=== PATIENT | female | born 1975 | race Caucasian/White ===

== ENCOUNTER 2020-05-09 07:28 | Outpatient (REF) | payer BC, SELFPAY ==
--- NOTE | 2020-05-09 07:33 | MM_ITS ---
EXAMINATION: MM SCREENING DIGITAL BREAST TOMOSYNTHESIS, BILATERAL CLINICAL INFORMATION: Screening. Asymptomatic. The lifetime risk of breast cancer based on the Tyrer-Cuzick Model is 24%. COMPARISON: Mammography: 05/04/2019, 04/28/2018, 04/26/2017, 04/19/2016 TECHNIQUE: Digital breast tomosynthesis is performed in both the craniocaudal and mediolateral oblique views along with computer-aided detection (CAD). Synthesized 2D images are generated from the tomosynthesis. FINDINGS: There are scattered areas of fibroglandular density (ACR BI-RADS breast composition Category b). There are no significant masses, abnormal calcifications, or other abnormalities. Parenchymal pattern is similar to prior studies. No significant changes. MM/MM tomosynthesis screening BI IMPRESSION: No mammographic evidence of malignancy. ASSESSMENT: BI-RADS 1: Negative RECOMMENDATION: 1. Routine annual mammography screening. 2. The lifetime risk of breast cancer based on the Tyrer-Cuzick Model is 24%. Additional annual adjunct screening with breast MRI may be of benefit in women with a risk score of 20% or greater. This patient's information was entered into a reminder system with a target due date for their next mammogram.
== END 2020-05-09 07:29 | disposition home or self-care (01) ==
LOC: HO.MAMMO 07:28
PROVIDERS: PCP Internal Medicine; Visit Provider Internal Medicine
DX: Z12.31 Encounter for screening mammogram for malignant neoplasm of breast (principal)
CPT/HCPCS: 77063; 77067

== ENCOUNTER 2021-05-21 07:07 | Outpatient (REF) | payer BC, SELFPAY ==
[2021-05-21 11:35] LABS: MANUAL DIFF FLAG NO
[2021-05-21 11:40] LABS: Basophils Absolute Auto 0.1 X10*3/uL (0.0-0.2); Basophils Percent Auto 0.4 % (0-2); Eosinophils Absolute Auto 0.1 X10*3/uL (0.0-0.4); Eosinophils Percent Auto 1.2 % (0-4); Hematocrit 42.9 % (37.0-47.0); Hemoglobin 13.7 g/dl (12.0-16.0); Imm Gran Abs Auto 0.04 X10*3/uL (0.00-0.03); Imm Gran Pct Auto 0.4 % (0.0-0.4); Lymphocytes Absolute Auto 2.1 X10*3/uL (1.2-4.9); Mean Corpuscular HGB Conc 31.9 g/dl (31.0-35.0); Mean Corpuscular Hemoglobin 30.7 pg (27.0-33.0); Mean Corpuscular Volume 96.2 fL (80.0-98.0); Mean Platelet Volume 12.3 fL (9.4-12.3); Monocytes Absolute Auto 0.6 X10*3/uL (0.1-1.2); Monocytes Percent Auto 5.5 % (2-11); Neutrophils Absolute Auto 8.5 x10*3/uL (2.0-8.3); Neutrophils Percent Auto 74.5 % (45-73); Platelet Count 339 X10*3/uL (160-400); Red Blood Count 4.46 X10*6/uL (4.20-5.50); Red Cell Distribution Width 12.1 % (11.0-16.0); White Blood Count 11.4 X10*3/uL (4.8-10.8)
[2021-05-21 11:53] LABS: Alanine Aminotransferase 28 U/L (0-31); Albumin Level 4.3 g/dL (3.5-5.0); Alkaline Phosphatase 114 U/L (39-117); Anion Gap 11 (12-20); Aspartate Amino Transferase 19 U/L (5-31); Bilirubin Total 0.5 mg/dL (0.0-1.0); Blood Urea Nitrogen 12 mg/dL (9-16); Calcium 9.9 mg/dL (8.4-10.2); Carbon Dioxide 27 mmol/L (22-29); Chloride 107 mmol/L (96-108); Cholesterol 166 mg/dL; Estimated Glomerular Filt Rate > 60; Glucose Fasting 92 mg/dL (60-99); HDL Cholesterol 43 mg/dL; LDL Cholesterol Calculated 101 mg/dl; Potassium 4.9 mmol/L (3.3-5.1); Sodium 140 mmol/L (135-145); Total Protein 7.3 g/dL (6.5-8.0); Triglycerides 110 mg/dL
[2021-05-21 12:14] LABS: TSH reflex Free T4 1.64 uIU/mL (0.32-4.0)
== END 2021-05-21 07:08 | disposition home or self-care (01) ==
LOC: HO.HMGCLDS 07:07
PROVIDERS: PCP Internal Medicine; Visit Provider Internal Medicine
DX: Z00.01 Encounter for general adult medical examination with abnormal findings (principal); R10.13 Epigastric pain; E66.09 Other obesity due to excess calories; N30.10 Interstitial cystitis (chronic) without hematuria; Z91.09 Other allergy status, other than to drugs and biological substances
CPT/HCPCS: 36415; 80053; 80061; 84443; 85025

== ENCOUNTER 2021-06-22 12:34 | Outpatient (REF) | payer BC, SELFPAY ==
--- NOTE | ~2021-06-22 | MM_ITS ---
EXAMINATION: MM SCREENING DIGITAL BREAST TOMOSYNTHESIS, BILATERAL CLINICAL INFORMATION: Screening. Asymptomatic. The lifetime risk of breast cancer based on the Tyrer-Cuzick Model is 21%. COMPARISON: Mammography: 05/09/2020, 05/04/2019, 04/28/2018 TECHNIQUE: Digital breast tomosynthesis is performed in both the craniocaudal and mediolateral oblique views along with computer-aided detection (CAD). Synthesized 2D images are generated from the tomosynthesis. FINDINGS: There are scattered areas of fibroglandular density (ACR BI-RADS breast composition Category b). There are no significant masses, abnormal calcifications, or other abnormalities. Parenchymal pattern is similar to prior studies. There is no developing density or architectural abnormality. The axilla and skin contours are unremarkable. No significant changes. MM/MM tomosynthesis screening BI IMPRESSION: No mammographic evidence of malignancy. ASSESSMENT: BI-RADS 1: Negative RECOMMENDATION: 1. Routine annual mammography screening. 2. The lifetime risk of breast cancer based on the Tyrer-Cuzick Model is 21%. Additional annual adjunct screening with breast MRI may be of benefit in women with a risk score of 20% or greater. This patient's information was entered into a reminder system with a target due date for their next mammogram.
== END 2021-06-22 12:35 | disposition home or self-care (01) ==
LOC: HO.MAMMO 12:34
PROVIDERS: PCP Internal Medicine; Visit Provider Internal Medicine
DX: Z12.31 Encounter for screening mammogram for malignant neoplasm of breast (principal)
CPT/HCPCS: 77063; 77067

== ENCOUNTER 2021-08-13 14:13 | Outpatient (REF) | payer BC, SELFPAY ==
[2021-08-13 16:09] LABS: C Reactive Protein 1.69 mg/dL (< or = 0.50)
[2021-08-17 12:21] LABS: Transglutaminase Ab IgG <1.0 U/mL; Transglutaminase IgA <1.0 U/mL
== END 2021-08-13 14:14 | disposition home or self-care (01) ==
LOC: HO.LAB 14:13
PROVIDERS: PCP Internal Medicine; Referring Provider Internal Medicine; Visit Provider Nurse Practitioner
DX: R19.7 Diarrhea, unspecified (principal)
CPT/HCPCS: 36415; 86003; 86140; 86364

== ENCOUNTER 2021-08-17 16:17 | Outpatient (REF) | payer BC, SELFPAY ==
[2021-08-25 22:46] LABS: Pancreatic Elastase-1 >500 mcg/g
== END 2021-08-17 16:18 | disposition home or self-care (01) ==
LOC: HO.LNP 16:17
PROVIDERS: Visit Provider Nurse Practitioner
DX: R19.7 Diarrhea, unspecified (principal)
CPT/HCPCS: 82656

== ENCOUNTER 2021-08-20 14:44 | Outpatient (REF) | payer BC, SELFPAY ==
[2021-08-20 16:57] LABS: TSH reflex Free T4 0.89 uIU/mL (0.32-4.0)
== END 2021-08-20 14:45 | disposition home or self-care (01) ==
LOC: HO.LAB 14:44
PROVIDERS: PCP Internal Medicine; Referring Provider Internal Medicine; Visit Provider Internal Medicine Cardiovascular Disease
DX: R00.2 Palpitations (principal); R94.31 Abnormal electrocardiogram [ECG] [EKG]; I10 Essential (primary) hypertension; G47.30 Sleep apnea, unspecified
CPT/HCPCS: 36415; 84443

== ENCOUNTER → 2021-09-06 20:33 | Outpatient (REF) | payer BC, SELFPAY | LOC: HO.SL 20:33 | PROVIDERS: Visit Provider Internal Medicine Cardiovascular Disease | DX: G47.30 Sleep apnea, unspecified (principal) | CPT/HCPCS: 95810 ==

== ENCOUNTER 2021-09-18 09:02 | Outpatient (REF) | payer BC, SELFPAY | END 2021-09-18 09:03 | disposition home or self-care (01) | LOC: HO.LAB 09:02 | PROVIDERS: PCP Internal Medicine; Referring Provider Internal Medicine; Visit Provider Nurse Practitioner | DX: Z13.89 Encounter for screening for other disorder (principal) ==

== ENCOUNTER 2021-09-22 09:56 | Outpatient (REF) | payer BC, SELFPAY ==
[2021-09-29 18:52] LABS: Calprotectin, Fecal 31 mcg/g
== END 2021-09-22 09:57 | disposition home or self-care (01) ==
LOC: HO.LNP 09:56
PROVIDERS: Visit Provider Nurse Practitioner
DX: R19.7 Diarrhea, unspecified (principal); R79.82 Elevated C-reactive protein (CRP)
CPT/HCPCS: 83993

== ENCOUNTER → 2021-10-16 14:48 | Outpatient (BNVA) | payer BC, SELFPAY | PROVIDERS: PCP Internal Medicine; Referring Provider Internal Medicine; Visit Provider Nurse Practitioner | DX: R19.7 Diarrhea, unspecified (principal) ==

== ENCOUNTER 2021-11-19 08:00 | Outpatient (REF) | payer BC, SELFPAY ==
[2021-11-19 12:23] LABS: Alanine Aminotransferase 11 U/L (0-31); Albumin Level 4.2 g/dL (3.5-5.0); Alkaline Phosphatase 90 U/L (39-117); Anion Gap 12 (12-20); Aspartate Amino Transferase 13 U/L (5-31); Bilirubin Total 0.9 mg/dL (0.0-1.0); Blood Urea Nitrogen 10 mg/dL (9-16); Calcium 9.2 mg/dL (8.4-10.2); Carbon Dioxide 23 mmol/L (22-29); Chloride 109 mmol/L (96-108); Estimated Glomerular Filt Rate > 60; Glucose Random 95 mg/dL (60-115); Potassium 4.3 mmol/L (3.3-5.1); Sodium 140 mmol/L (135-145); Total Protein 7.2 g/dL (6.5-8.0)
== END 2021-11-19 08:01 | disposition home or self-care (01) ==
LOC: HO.HMGCLDS 08:00
PROVIDERS: PCP Internal Medicine; Visit Provider Internal Medicine
DX: I10 Essential (primary) hypertension (principal); R10.13 Epigastric pain; R94.31 Abnormal electrocardiogram [ECG] [EKG]
CPT/HCPCS: 36415; 80053

== ENCOUNTER → 2021-11-29 13:55 | Outpatient (REF) | payer BC, SELFPAY ==
--- NOTE | 2021-11-29 14:01 | HM_ITS ---
* Total monitoring time 3 days and 18 hours. * Underlying rhythm is sinus. Average rate 71/Min. Range 54 to 120/Min. * Rare supraventricular ectopy with minimal burden. * 4 supraventricular episodes; longest 15 beats. * No patient events. MTDD
--- NOTE | 2021-11-29 14:01 | CA_ITS ---
Transthoracic Echocardiogram Patient (Last, First, Middle): Aparna Zimmerman S Gender: Female Date of : 1975 Age: 46 Procedure Date: 11/29/2021 Procedure Type: Transthoracic Echocardiogram Location: OP Height: 170.18 cm Weight: 95.26 kg BSA: 2.06 m2 Heart Rate: bpm BP: 131 / 70 mmHg Story Editor: RITU Referring MD: Addi Sandoval MD Symptoms: R00.2 - Palpitations Study Quality: Adequate Conclusions: - Normal left ventricular size, thickness, systolic function, and wall motion. The visually estimated ejection fraction is between 60-65%. - Normal right ventricular cavity size and systolic function. - There is mild dilatation of the ascending aorta measuring 3.30 cm. Findings Left Ventricle Normal left ventricular size, thickness, systolic function, and wall motion. The visually estimated ejection fraction is between 60-65%. Diastolic function is normal for age. Right Ventricle Normal right ventricular cavity size and systolic function. Atria Both atria are normal in size. Aortic Valve Normal aortic valve structure and function. There is no aortic valve stenosis. There is no aortic valve regurgitation. Mitral Valve Normal mitral valve structure and function. There is no mitral valve regurgitation. There is no mitral valve stenosis. Pulmonic Valve Normal pulmonic valve structure and function. There is trace pulmonic valve regurgitation. Tricuspid Valve Normal tricuspid valve structure and function. There is no tricuspid valve regurgitation. Normal right atrial pressure. There is no evidence of pulmonary hypertension. Great Vessels There is mild dilatation of the ascending aorta measuring 3.30 cm. The visualized portions of the pulmonary artery and branches are normal. Venous The inferior vena cava is normal in size and collapses greater than 50% with inspiration. Pericardium/Pleural There is no evidence of pericardial effusion. Prior Study Comparison No prior study available for comparison. Measurements 2D Linear Measurements IVSd: 1.01 0.6-0.9/0.6-1.0 cm LVIDd: 4.68 3.9-5.3/4.2-5.9 cm LVIDd Index: 2.27 2.4-3.2/2.2-3.1 cm/m2 LVIDs: 3.32 2.0-3.6 cm LVPWd: 0.85 0.7-1.1 cm LA Diam: 3.10 2.7-3.8/3.0-4.0 cm LAIDs Index: 1.50 1.5-2.3 cm/m2 LV Mass: 184.58 67-162/88-224 g LV Mass Index: 89.60 43-95/49-115 g/m2 LVOT Diam: 2.00 3.0+(-)1.3 cm 2D Systolic Function EF 4C: 63.00 >55% EF 2C: 66.90 >55% EF BiP: 63.60 >55% Mitral Valve MV Pk E: 0.61 MV PK A: 0.49 MV Decel Time: 296.00 E/A: 1.20 E'Lateral: 9.68 E'Medial: 7.29 E/E' Med: 8.30 E/E' Lat: 6.30 PHT: 87.00 MVA PHT: 2.53 Decel [place]: 2.06 LVOT LVOT Diam: 2.00 LVOT Area: 3.14 Diastolic Function MV Pk E: 0.61 MV Pk A: 0.49 E/A: 1.20 E'Medial: 7.29 E/E' Med: 8.30 E' Laterial: 9.68 E/E' Lat: 6.30 Right Ventricle TAPSE (mm): 22.30 TVS' Blake: 10.10 Tricuspid Valve TR Pk Blake: 2.11 TR Pk Grad: 18.00 RA Press: 3.00 RVSP: 21.00 Great Vessels Aorta Sinus of Valsalva: 3.24 2.0-3.[address] [place]: 3.02 1.7-3.4 cm Ao Asc: 3.30 2.1-3.4 cm Updated in Other Vendor System with Status of Final Addi Sandoval MD electronically signed on 12/03/2021 8:48:51 AM with status of Final
== END ==
LOC: HO.CARD 13:55
PROVIDERS: PCP Internal Medicine; Visit Provider Internal Medicine Cardiovascular Disease
DX: R00.2 Palpitations (principal)
CPT/HCPCS: 93242; 93306

== ENCOUNTER → 2021-12-03 14:53 | Outpatient (BNVA) | payer BC, SELFPAY | PROVIDERS: PCP Internal Medicine; Referring Provider Internal Medicine; Visit Provider Internal Medicine Cardiovascular Disease | DX: I10 Essential (primary) hypertension (principal); R00.2 Palpitations | CPT/HCPCS: 93005 ==

== ENCOUNTER 2021-12-10 11:02 | Day surgery (SDC) | payer BC, SELFPAY ==
--- NOTE | 2021-12-07 08:45 | HO.ANESPROP2 ---
Documented by User: Syeda Lim NP 12/07/21 08:47 [facility] Active Problems Active Problems: All Active Problems (Updated 09/18/21 @ 09:48 by RIMMA Parson) Elevated C-reactive protein (CRP) (Acute) Sleep disorder breathing (Acute) Diarrhea (Acute) Hypertension, essential (Acute) Abnormal EKG (Acute) Palpitations (Acute) Obesity due to excess calories (Acute) Chronic interstitial cystitis (Acute) Breast screening (Acute) Bladder disorder (Acute) Dyspepsia (Acute) Encounter for general adult medical examination with abnormal findings (Acute) Environmental allergies (Acute) Past Medical History Medical History Environmental allergies Family History Family History Mother HTN (hypertension) Father HTN (hypertension) Other Substance use disorder Surgical History Surgical History History of endoscopy History of hysterectomy Social History Social History Housing: House Alcohol intake: current Alcohol intake frequency: holidays/special occasions only Patient Tobacco Use Status: Never used Tobacco Advance Directives: No Advance Directives Information Provided: Yes Patient : No Current occupational status: employed Cognitive needs: No Hearing needs: No Vision needs: Yes Meds Allergies Allergy/AdvReac Type Severity Reaction Status Date / Time No Known Allergies Allergy Verified 12/03/21 15:03 Home Medications Medication Instructions Recorded Confirmed Last Taken Type calcium carbonate [Calcium 600] PO DAILY 05/16/21 12/04/21 Unknown History famotidine 20 mg tablet (Pepcid) 20 mg PO DAILY PRN Acid Reflux 05/16/21 12/04/21 12/10/21 History fexofenadine 180 mg tablet 180 mg PO DAILY 05/16/21 12/04/21 Unknown History (Cathy Allergy) solifenacin 5 mg tablet 5 mg PO DAILY 05/16/21 12/04/21 Unknown History desogestrel 0.15 mg-ethinyl 1 tab PO DAILY 08/20/21 12/04/21 Unknown History estradiol 0.03 mg tablet (Apri) Exam Exam Date and Time: December 07, 2021 0845 Pertinent Lab Results Pertinent Lab Results: Laboratory Tests 05/21/21 11/19/21 07:15 08:08 WBC 11.4 H Hgb 13.7 Hct 42.9 Plt Count 339 Sodium 140 Potassium 4.3 Chloride 109 H Carbon Dioxide 23 BUN 10 Creatinine 0.92 Narrative Narrative: EKG 11/2021 Sinus rhythm 88 beats per minute, nonspecific ST-T changes in the inferior and anterolateral leads as before.? QT interval 435 milliseconds. ECHO 11/2021 Conclusions: - Normal left ventricular size, thickness, systolic function, and wall motion. The visually estimated ejection fraction is between 60-65%.? - Normal right ventricular cavity size and systolic function.? ? - There is mild dilatation of the ascending aorta measuring 3.30 cm.? ? Assessment and Plan Assessment Anesthesia Assessment: Chart Reviewed Documented by User: Cheyanne Esteban MD 12/10/21 13:03 HPI - Anesthesia Eval Consult details Narrative: 46yo female patient for colonoscopy PMFSH Active Problems Active Problems: All Active Problems (Updated 09/18/21 @ 09:48 by RIMMA Parson) Elevated C-reactive protein (CRP) (Acute) Sleep disorder breathing (Acute) Diarrhea (Acute) Hypertension, essential (Acute) Abnormal EKG (Acute) Palpitations (Acute) Obesity due to excess calories (Acute) Chronic interstitial cystitis (Acute) Breast screening (Acute) Bladder disorder (Acute) Dyspepsia (Acute) Encounter for general adult medical examination with abnormal findings (Acute) Environmental allergies (Acute) Had sleep study. Negative for DILLAN Past Medical History Medical History Environmental allergies Family History Family History Mother HTN (hypertension) Father HTN (hypertension) Other Substance use disorder Family history of problems with anesthesia: No Surgical History Surgical History History of endoscopy History of hysterectomy History of Problems with Anesthesia: No Social History Social History Housing: House Alcohol intake: current Alcohol intake frequency: holidays/special occasions only Patient Tobacco Use Status: Never used Tobacco Advance Directives: No Advance Directives Information Provided: Yes Patient : No Current occupational status: employed Cognitive needs: No Hearing needs: No Vision needs: Yes Meds Allergies Allergy/AdvReac Type Severity Reaction Status Date / Time No Known Allergies Allergy Verified 12/03/21 15:03 Home Medications Medication Instructions Recorded Confirmed Last Taken Type calcium carbonate [Calcium 600] PO DAILY 05/16/21 12/04/21 Unknown History famotidine 20 mg tablet (Pepcid) 20 mg PO DAILY PRN Acid Reflux 05/16/21 12/04/21 12/10/21 History fexofenadine 180 mg tablet 180 mg PO DAILY 05/16/21 12/04/21 Unknown History (Cathy Allergy) solifenacin 5 mg tablet 5 mg PO DAILY 05/16/21 12/04/21 Unknown History desogestrel 0.15 mg-ethinyl 1 tab PO DAILY 08/20/21 12/04/21 Unknown History estradiol 0.03 mg tablet (Apri) Exam Height,Weight and Vital Signs: Height 5 ft 7 in Weight 95.708 kg Vital Signs Temp Pulse Resp BP Pulse Ox O2 Del Method 12/10/21 11:06 97 F 85 18 122/59 L 98 Room Air Airway Mallampati Class: III (Small mouth opening ) TM Dist: >3cm Neck ROM: Full Loose/Missing/Broken Teeth: No (Per patient. Caps intact) Heart: RRR Lungs: CTAB Assessment and Plan Final Anesthetic Review Family History of Problems with Anesthesia: No History of Problems with Anesthesia: No NPO: Yes ASA Class: II Final Preanesthetic Review: No Changes in Pt Med Stat, Meds/Allgs Chart Reviewed, Consent Obtained/Reviewed and Anes Risks/Benef Reviewed Patient Risk: Intermediate Procedure Risk: Low Assessment/Block/Sedation in SS: Assess/Block/Sedation-SS Anesthetic Plan Anesthetic Plan: MAC: Disposition: Standard PACU
[2021-12-10 06:14] VITALS: BMI 33.0
[2021-12-10 11:06] VITALS: BP 122/59; PULSE 85; RESP 18; TEMP 36.1; O2SAT 98
[2021-12-10] MEDS: Lactated Ringers 1,000 ML 100 ML IVCONT (11:22)
--- NOTE | 2021-12-10 11:41 | MHC.SHP ---
Pre-Procedural Eval Section A Date of Service: 12/10/21 The patient is an INPATIENT: No Section B Chief Complaint: diarrhea Relevant Family History (Specify if Yes): No Relevant Social History: None Present Medications: see Short Stay Collaborative assessment Medical History: Significant History (Hypertension, diarrhea, Obesity) History of Previous Operations: Relevant previous surgery/procedure and date(s) (History of endoscopy History of hysterectomy) Allergies: Allergies Allergy/AdvReac Type Severity Reaction Status Date / Time No Known Allergies Allergy Verified 12/03/21 15:03 Review of Systems Sugical H&P ROS: Negative: Constitution, Cardiovascular and Respiratory and Yes, Specify: Gastrointestinal (diarrhea) Exam Surgical H&P Exam: Normal: Heart, Normal: Lungs, Normal: Extremities and Normal: Abdomen Plan Diagnosis/Plan: Unchanged I have reviewed the history and physical and performed a pertinent physical examination on my patient. No changes have occurred unless specified.
--- NOTE | 2021-12-10 12:31 | PM.OP ---
Brief Operative Note Date of Service: 12/10/21 Pre-op diagnosis: Colon cancer screen, diarrhea alternating with constipation Post-op diagnosis: other (Hemorrhoids, diverticulosis) Procedure: COLONOSCOPY TILL CECUM WITH BIOPSIES Consent: Indications for the procedure and potential complications of bleeding, perforation, reaction to medications and missed diagnosis were discussed with the patient and informed consent was obtained. Instrument: Olympus PCF H 190 L variable stiffness pediatric colonoscope Monitoring: Vital signs and clinical assessment, intermittent blood pressure monitoring, continuous EKG monitoring, Pulse oximetry and Carbon Dioxide monitoring were done throughout the procedure. Colon withdrawl time was 12 minutes. Procedure: The patient was placed in the left lateral decubitis position and pre-procedure medications were administered. After a digital rectal examination of the ano-rectum, the video colonoscope was inserted into the rectum and advanced through the colon to the cecum. The colonoscope was slowly withdrawn in a retrograde panoramic fashion and the colon mucosa was carefully examined including a retroflexed view of the rectum. Findings and interventions are described below. Procedure Difficulty: Without difficulty Findings: Terminal Ileum: Attempts to intubate the TI were unsuccessful Cecum: Normal Ascending Colon: Normal Transverse Colon: Normal Descending Colon: Moderate diverticulosis Sigmoid Colon: Severe diverticulosis Rectum: Normal Ano-rectum: Moderate internal hemorrhoids Colon preparation: Excellent Impression and Post Procedure Diagnosis: Colonoscopy Findings: No polyps were detected. Random biopsies were obtained from the right and left colon to check for microscopic colitis Moderate to severe diverticulosis seen in the left colon Moderate hemorrhoids on retroflexed exam. Plan: Await pathology results Patient has an appointment on 12/25/21 in the GI Clinic with Radha To NP. Repeat Colonoscopy interval based on path results - in 10 years if random biopsies are normal. Above findings were reviewed with the patient and diverticulosis handout was given in the discharge area Surgeon: John Calvin MD Anesthesia: MAC (Dr Cadena) Was an Trim Master Operator used for this Procedure?: Yes Trim Master Operator: Mary Diaz Estimated blood loss (mL): 0 Pathology: other (A: right Colon biopsies r/o microscopic colitis B: left colon biopsies r/o microscopic colitis) Condition: stable Disposition: PACU
[2021-12-10 13:02] VITALS: BP 116/56; PULSE 81; RESP 16; TEMP 37.3; O2SAT 95
[2021-12-10 13:17] VITALS: BP 111/55; PULSE 84; RESP 16; TEMP 36.3; O2SAT 99
--- NOTE | 2021-12-12 16:49 | W.PM.OPN ---
Operative Note Operative Note Date of Service: 12/10/21 Narrative: Pre-op diagnosis: Colon cancer screen, diarrhea alternating with constipation Post-op diagnosis:?other (Hemorrhoids, diverticulosis) Procedure: COLONOSCOPY TILL CECUM WITH BIOPSIES Consent: Indications for the procedure and potential complications of bleeding, perforation, reaction to medications and missed diagnosis were discussed with the patient and informed consent was obtained. Instrument: Olympus PCF H 190 L variable stiffness pediatric colonoscope Monitoring: Vital signs and clinical assessment, intermittent blood pressure monitoring, continuous EKG monitoring, Pulse oximetry and Carbon Dioxide monitoring were done throughout the procedure. Colon withdrawl time was 12 minutes. Procedure: The patient was placed in the left lateral decubitis position and pre-procedure medications were administered. After a digital rectal examination of the ano-rectum, the video colonoscope was inserted into the rectum and advanced through the colon to the cecum. The colonoscope was slowly withdrawn in a retrograde panoramic fashion and the colon mucosa was carefully examined including a retroflexed view of the rectum. Findings and interventions are described below. Procedure Difficulty: Without difficulty Findings: Terminal Ileum: Attempts to intubate the TI were unsuccessful Cecum:? Normal Ascending Colon:? Normal Transverse Colon:? Normal Descending Colon:? Moderate diverticulosis Sigmoid Colon:? Severe diverticulosis Rectum:? Normal Ano-rectum:? Moderate internal hemorrhoids Colon preparation: Excellent ? Impression and Post Procedure Diagnosis: Colonoscopy Findings: No polyps were detected. Random biopsies were obtained from the right and left colon to check for microscopic colitis Moderate to severe diverticulosis seen in the left colon Moderate hemorrhoids on retroflexed exam. Plan: Await pathology results Patient has an appointment on 12/25/21 in the GI Clinic with? Radha To NP. Repeat Colonoscopy interval based on path results - in 10 years if random biopsies are normal. Above findings were reviewed with the patient and diverticulosis handout was given in the discharge area Surgeon: John Calvin MD Anesthesia:?MAC (Dr Cadena) Was an Clinical Rehabilitation Specialist used for this Procedure?:?Yes Clinical Rehabilitation Specialist:?Mary Diaz Estimated blood loss (mL):?0 Pathology:?other (A: right Colon biopsies r/o microscopic colitis? B: left colon biopsies r/o microscopic colitis) Condition:?stable Disposition:?PACU
== END 2021-12-10 13:37 | disposition home or self-care (01) ==
PROVIDERS: PCP Internal Medicine; Visit Provider Internal Medicine Gastroenterology
PROC: 0DJD8ZZ Inspection of Lower Intestinal Tract, Via Natural or Artificial Opening Endoscopic (ICD-10-PCS; CPT 45378; principal; 2021-12-10 12:00)
DX: Z12.11 Encounter for screening for malignant neoplasm of colon (principal); R19.7 Diarrhea, unspecified; K59.00 Constipation, unspecified; K57.30 Diverticulosis of large intestine without perforation or abscess without bleeding; K64.8 Other hemorrhoids; I10 Essential (primary) hypertension; R79.82 Elevated C-reactive protein (CRP); Z79.899 Other long term (current) drug therapy
CPT/HCPCS: 45380; 88305

== ENCOUNTER → 2022-06-27 13:54 | Outpatient (BNVA) | payer BC, SELFPAY | PROVIDERS: PCP Internal Medicine; Visit Provider Nurse Practitioner | DX: Z13.89 Encounter for screening for other disorder (principal) ==

== ENCOUNTER 2022-07-18 12:03 | Outpatient (REF) | payer BC, SELFPAY ==
--- NOTE | ~2022-07-18 | MM_ITS ---
EXAMINATION: MM SCREENING DIGITAL BREAST TOMOSYNTHESIS, BILATERAL CLINICAL INFORMATION: Screening. Asymptomatic. The lifetime risk of breast cancer based on the Tyrer-Cuzick Model is 17%. COMPARISON: Mammography: 06/22/2021, 05/09/2020, 05/04/2019 TECHNIQUE: Digital breast tomosynthesis is performed in both the craniocaudal and mediolateral oblique views along with computer-aided detection (CAD). Synthesized 2D images are generated from the tomosynthesis. Additional right MLO view is provided. FINDINGS: There are scattered areas of fibroglandular density (ACR BI-RADS breast composition Category b). There are no significant masses, abnormal calcifications, or other abnormalities. No architectural abnormality or developing density or significant change from prior studies. The axilla and skin contours are unremarkable. No significant changes. MM/MM tomosynthesis screening BI IMPRESSION: No mammographic evidence of malignancy. ASSESSMENT: BI-RADS 1: Negative RECOMMENDATION: Routine annual mammography screening. This patient's information was entered into a reminder system with a target due date for their next mammogram.
== END 2022-07-18 12:04 | disposition home or self-care (01) ==
LOC: HO.MAMMO 12:03
PROVIDERS: PCP Internal Medicine; Visit Provider Internal Medicine
DX: Z12.31 Encounter for screening mammogram for malignant neoplasm of breast (principal)
CPT/HCPCS: 77063; 77067

== ENCOUNTER → 2022-08-01 13:56 | Outpatient (BNVA) | payer BC, SELFPAY | PROVIDERS: PCP Internal Medicine; Referring Provider Internal Medicine; Visit Provider Internal Medicine Cardiovascular Disease | DX: I10 Essential (primary) hypertension (principal); R00.2 Palpitations | CPT/HCPCS: 93005 ==

== ENCOUNTER → 2022-11-06 14:47 | Outpatient (BNVA) | payer BC, SELFPAY | PROVIDERS: PCP Internal Medicine; Referring Provider Internal Medicine; Visit Provider Internal Medicine Cardiovascular Disease ==

== ENCOUNTER 2023-01-02 11:42 | Outpatient (AMB) | payer BC, SELFPAY ==
--- NOTE | 2023-01-02 11:44 | A.OFFVIS_ITS ---
Intake Vital Signs 01/02/23 12:24 Height 5 ft 7 in Weight 225 lb 4.999 oz BMI 35.3 BP 102/60 Blood Pressure Location Lt brachial Position Sitting Pulse 65 Intake Visit Reasons: 6 month FU Intake Note: Aparna presents in office as a est.patient for a 6month f/u IBS PT CC: pt reports having no concerns pt denies any GI Issues Junior Underwriter Required: No Accompanied by: Self / Same As Patient Allergies No Known Allergies Allergy (Verified 01/02/23 12:25) HPI 6 month FU HPI Details Assessment & Plan (1) Diarrhea: ?Code(s): R19.7 - Diarrhea, unspecified ?Plan: She thinks she she has devised a dosing schedule for her carafate, 2 pills at night....but notes this does no work as well in the summer months. Then she will have diarrhea despite taking the medicine. I will give her up to 4 a day to play with as the summer approaches. ROV 6 mos. ? ? ? Medications: Changed From sucralfate 2 grams (2 x 1 gra m) PO DAILY 60 tab s 6RF R19.7 - Diarrhea, unspecified ? To sucralfate 4 grams (4 x 1 gra m) PO DAILY 120 ta bs 6RF R19.7 - Diarrhea, unspecified ? TODAY'S VISIT She has had the best summer I have ever had in terms of her diarrhea control. She has not needed to increase her carafate, and is holding well at 2 pills. She has extra set aside in case she needs, but would rather have the prescription amount stay at 2 pills a day. She is waking for 30 minutes in the am and she feels this may also be helping with her GI issues. ROV 6 mos. PFSH Medical History Environmental allergies Surgical History History of endoscopy History of hysterectomy Hx of colonoscopy Family History Mother HTN (hypertension) Father HTN (hypertension) Other Substance use disorder Social History Housing: House Alcohol intake: current Alcohol intake frequency: holidays/special occasions only Patient Tobacco Use Status: Never used Tobacco e-Cigarette/Vaping Use: Never Used Current occupational status: employed Cognitive needs: No Hearing needs: No Vision needs: Yes Review of Systems Const Denies fatigue, Denies fever(s), Denies night sweats, Denies poor appetite and Denies weight loss Eyes Details: glasses Reports requires corrective lenses ENT Reports Normal hearing present, Denies dental pain, Denies dysphagia, Denies hearing loss, Denies mouth pain, Denies odynophagia, Denies throat swelling, Denies tongue swelling and Reports other (Dentition adequate) Card Reports no additional complaints Resp Reports no additional complaints GI Denies abdominal pain, Denies melena, Denies bloating, Denies hematochezia, Denies constipation, Denies GI cramping, Denies dysphagia, Denies excessive flatus, Denies early satiety, Denies heartburn, Reports diarrhea, Denies nausea, Denies odynophagia, Denies vomiting and Denies hematemesis Skin/Breast Denies pruritus, Denies lesions, Denies rash and Denies jaundice Neuro Reports Normal hearing present and Denies Abnormal speech present Endo Denies fatigue Aller/Immun Denies throat swelling and Denies tongue swelling Physical Exam Vital Signs: Last Vital Signs Pulse 65 01/02/23 12:24 BP 102/60 01/02/23 12:24 BMI result Body Mass Index 35.3 Const General: cooperative, no acute distress, well developed and well groomed Nutritional Appearance: well nourished and obese Orientation/consciousness: oriented to person, oriented to place and oriented to time Limitations: No language barrier HEENT Head: Yes normocephalic and Yes atraumatic Eyes General: appearance normal, both eyes and all related structures Pupils: Equal, round and reactive pupils present Neck Neck: Yes normal visual inspection and Yes no lymphadenopathy Thyroid: Thyroid normal Resp Effort & Inspection: normal respiratory effort and able to speak in complete sentences Auscultation: clear to auscultation bilaterally Cardio Rate: regular rate Rhythm: regular rhythm Heart sounds: Normal, physiologic split S2 sound present Peripheral pulses: radial pulses present and posterior tibial pulses present GI Inspection: No distended, No Abdominal panniculus present and Yes obesity Palpation (GI): Soft to palpation, nontender, no guarding, not rigid and No hepatosplenomegaly present Percussion: Yes normal to percussion Auscultation: normal bowel sounds Rectal Exam - Female: deferred Skin General skin exam: no rashes or lesions noted, turgor normal, skin not dry, no jaundice, No spider nevi and no striae Rashes: no rashes Nails: normal Neuro General: oriented to person, oriented to place and oriented to time Cranial nerves: Yes Equal, round and reactive pupils present and Yes Normal hearing present Speech: No Abnormal speech present Extrem General: Yes normal to inspection, No clubbing, No cyanosis and No edema Psych Appearance: grossly normal and well kempt Mental Status: mental status grossly normal Speech and movement: Normal speech and movement present Affect: normal affect Attitude: cooperative Thought process: Normal thought process present and not confabulating Thought content: Normal thought content present Insight: Fair insight present (Psych) Judgement: Fair judgement present (Psych) Assessment & Plan Assessment & Plan (1) Diarrhea: Code(s): R19.7 - Diarrhea, unspecified Plan: She has had the best summer I have ever had in terms of her diarrhea control. She has not needed to increase her carafate, and is holding well at 2 pills. She has extra set aside in case she needs, but would rather have the prescription amount stay at 2 pills a day. She is waking for 30 minutes in the am and she feels this may also be helping with her GI issues. ROV 6 mos. Medications: Changed From sucralfate 4 grams (4 x 1 gram) PO DAILY 120 tabs 6RF R19.7 - Diarrhea, unspecified To sucralfate 2 grams (2 x 1 gram) PO DAILY 120 tabs 6RF R19.7 - Diarrhea, unspecified Coding Level of Care Code Est Pt Level 3 (63444) Diagnoses Diarrhea R19.7
[2023-01-02 12:24] VITALS: BP 102/60; PULSE 65; BMI 35.3
== END 2023-01-02 12:34 | disposition home or self-care (01) ==
PROVIDERS: PCP Internal Medicine; Visit Provider Nurse Practitioner
DX: R19.7 Diarrhea, unspecified (principal)
CPT/HCPCS: 99213

== ENCOUNTER → 2023-01-02 11:42 | Outpatient (BNVA) | payer BC, SELFPAY | PROVIDERS: PCP Internal Medicine; Visit Provider Nurse Practitioner ==

== ENCOUNTER 2023-05-12 13:26 | Outpatient (AMB) | payer BC, SELFPAY ==
--- NOTE | 2023-05-12 13:58 | A.OFFVIS_ITS ---
Intake Vital Signs 05/12/23 14:00 Height 5 ft 7 in Weight 217 lb 6.012 oz BMI 34.0 BP 112/58 L Blood Pressure Location Lt brachial Position Sitting Pulse 68 Pulse Source Pulse Oximeter Intake Visit Reasons: 6 month follow-up Intake Note: 6 mnth f/up pt its fine but when shes fullu asleep she wakes up with her heart pounding. 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 She has been experiencing almost daily palpitations at nighttime since May 2021. She said she wakes up from sleep with palpitations. Occasionally also feels short of breath and at times just startles and wakes up. Denying any snoring but has daytime sleepiness and fatigue. No headaches or nighttime sweating. She is denying chest pain or significant shortness of breath. She also was diagnosed with hypertension and was started on atenolol and her blood pressure control appears good. No history of any thyroid issues. Echocardiography has shown normal biventricular function. There is very mild dilation of ascending aorta 3.3 cm. She has known history of hypertension and started on atenolol previously with good control of blood pressure. Was referred for sleep study which was normal. She had Holter monitor which showed supraventricular ectopy but no long runs of arrhythmia. She was advised to increase atenolol to 25 mg twice a day. She returns and has been feeling the same. She is saying that she has gained more weight and feels that her symptoms are more consistent and she has daytime sleepiness and fatigue also. 05/12/2023: She returns for follow-up. She has lost 8 lb. She continues to get some nighttime palpitations and startled feeling. We discussed about referral to Sleep Medicine before but she wishes to hold off on that again. [facility] Medical History Environmental allergies Surgical History Hx of colonoscopy History of endoscopy History of hysterectomy Family History Mother HTN (hypertension) Father HTN (hypertension) Other Substance use disorder Social History Housing: House Alcohol intake: current Alcohol intake frequency: holidays/special occasions only Patient Tobacco Use Status: Never used Tobacco e-Cigarette/Vaping Use: Never Used Current occupational status: employed Cognitive needs: No Hearing needs: No Vision needs: Yes Review of Systems Const Reports chills, Reports fatigue, Reports fever(s), Reports frequent falls, Reports weakness, Reports weight gain and Reports weight loss ENT Reports dizziness Card Reports chest pain, Reports leg edema, Reports lightheadedness, Reports palpitations, Reports dyspnea and Reports dyspnea on exertion Resp Reports cough, Reports dyspnea and Reports dyspnea on exertion GI Reports hematochezia Musc Reports abnormal gait, Reports muscle weakness, Reports numbness, Reports radiating pain into limb and Reports tingling Neuro Reports abnormal gait, Reports dizziness, Reports frequent falls, Reports numbness, Reports tingling and Reports weakness Endo Reports fatigue and Reports palpitations Physical Exam Vital Signs: Last Vital Signs Pulse 68 05/12/23 14:00 BP 112/58 L 05/12/23 14:00 BMI result Body Mass Index 34.0 GENERAL APPEARANCE: in no acute distress, pleasant. NECK: no carotid bruit, no jugular venous distention. SKIN: no suspicious lesions, warm and dry. HEART: no murmurs, regular rate and rhythm. LUNGS: clear to auscultation bilaterally. ABDOMEN: soft, nontender. EXTREMITIES: no edema. PERIPHERAL PULSES: equal. NEUROLOGIC: No gross deficits, AAO X 3 Assessment & Plan Assessment & Plan (1) Hypertension, essential: Code(s): I10 - Essential (primary) hypertension (2) Palpitations: Code(s): R00.2 - Palpitations Plan Pleasant for 8 female who is here for follow-up. She has background of hypertension and is currently taking atenolol 25 mg twice a day. Blood pressure control is good. She also had palpitations and we used beta-shalom for the same reason. She continues to get some palpitations at night but saying that she is not as concerned about them as she was before. She will continue same medications and try to exercise and lose some weight. If she continues to get the nighttime palpitations then would get assessment for Sleep Medicine for sleep apnea. Thank you for allowing me to participate in the care of your patient. Please feel free to contact me if you have any questions. Coding Level of Care Code Est Pt Level 4 (69952) Diagnoses Hypertension, essential I10 Palpitations R00.2
[2023-05-12 14:00] VITALS: BP 112/58; PULSE 68; BMI 34.0
== END 2023-05-12 14:34 | disposition home or self-care (01) ==
PROVIDERS: PCP Internal Medicine; Visit Provider Internal Medicine Cardiovascular Disease
DX: I10 Essential (primary) hypertension (principal); R00.2 Palpitations
CPT/HCPCS: 99214

== ENCOUNTER → 2023-05-12 13:26 | Outpatient (BNVA) | payer BC, SELFPAY | PROVIDERS: PCP Internal Medicine; Visit Provider Internal Medicine Cardiovascular Disease ==

== ENCOUNTER 2023-07-08 11:41 | Outpatient (AMB) | payer BC, SELFPAY ==
--- NOTE | 2023-07-08 11:43 | A.OFFVIS_ITS ---
Intake Vital Signs 07/08/23 11:44 Height 5 ft 7 in Weight 220 lb 7.396 oz BMI 34.5 BP 112/60 Blood Pressure Location Lt brachial Position Sitting Pulse 60 Intake Visit Reasons: 6 month fu Intake Note: Aparna presents in office today in 6 months follow up of IBS. CC: Patient states she is doing better and states her IBS is manageable now. Process Manufacturing Engineer Required: No Accompanied by: Self / Same As Patient Allergies No Known Allergies Allergy (Verified 07/08/23 11:47) HPI 6 month fu HPI Details Assessment & Plan (1) Diarrhea: Code(s): R19.7 - Diarrhea, unspecified Plan: She has had the best summer I have ever had in terms of her diarrhea control. She has not needed to increase her carafate, and is holding well at 2 pills. She has extra set aside in case she needs, but would rather have the prescription amount stay at 2 pills a day. She is waking for 30 minutes in the am and she feels this may also be helping with her GI issues. ROV 6 mos. Medications: Changed From sucralfate 4 grams (4 x 1 gra m) PO DAILY 120 ta bs 6RF R19.7 - Diarrhea, unspecified To sucralfate 2 grams (2 x 1 gra m) PO DAILY 120 ta bs 6RF R19.7 - Diarrhea, unspecified TODAY'S VISIT She continues to do very well and feels that no changes in her 2 sucralfate a day is needed. She says it is not perfect, but I feel better that I ever did. She remains satisfied with her GI regimen. ROV [facility] mos[facility] Medical History Environmental allergies Surgical History Hx of colonoscopy History of endoscopy History of hysterectomy Family History Mother HTN (hypertension) Father HTN (hypertension) Other Substance use disorder Social History Housing: House Alcohol intake: current Alcohol intake frequency: holidays/special occasions only Patient Tobacco Use Status: Never used Tobacco e-Cigarette/Vaping Use: Never Used Current occupational status: employed Cognitive needs: No Hearing needs: No Vision needs: Yes Review of Systems Const Denies fatigue, Denies fever(s), Denies night sweats, Denies poor appetite and Denies weight loss Eyes Details: glasses Reports requires corrective lenses ENT Reports Normal hearing present, Denies dental pain, Denies dysphagia, Denies hearing loss, Denies mouth pain, Denies odynophagia, Denies throat swelling, Denies tongue swelling and Reports other (Dentition adequate) Card Reports no additional complaints Resp Reports no additional complaints GI Details: Denies abdominal pain, Denies melena, Denies bloating, Denies hematochezia, Denies constipation, Denies GI cramping, Denies dysphagia, Denies excessive flatus, Denies early satiety, Denies heartburn, Reports diarrhea, Denies nausea, Denies odynophagia, Denies vomiting and Denies hematemesis Skin/Breast Denies pruritus, Denies lesions, Denies rash and Denies jaundice Neuro Reports Normal hearing present and Denies Abnormal speech present Endo Denies fatigue Aller/Immun Denies throat swelling and Denies tongue swelling Physical Exam Vital Signs: Last Vital Signs Pulse 60 07/08/23 11:44 BP 112/60 07/08/23 11:44 BMI result Body Mass Index 34.5 Const General: cooperative, no acute distress, well developed and well groomed Nutritional Appearance: well nourished and obese Orientation/consciousness: oriented to person, oriented to place and oriented to time Limitations: No language barrier HEENT Head: Yes normocephalic and Yes atraumatic Eyes General: appearance normal, both eyes and all related structures Pupils: Equal, round and reactive pupils present Neck Neck: Yes normal visual inspection and Yes no lymphadenopathy Thyroid: Thyroid normal Resp Effort & Inspection: normal respiratory effort and able to speak in complete sentences Auscultation: clear to auscultation bilaterally Cardio Rate: regular rate Rhythm: regular rhythm Heart sounds: Normal, physiologic split S2 sound present Peripheral pulses: radial pulses present and posterior tibial pulses present GI Inspection: No distended, Yes Abdominal panniculus present and Yes obesity Palpation (GI): Soft to palpation, nontender, no guarding, not rigid and No hepatosplenomegaly present Percussion: Yes normal to percussion Auscultation: normal bowel sounds Rectal Exam - Female: deferred Skin General skin exam: no rashes or lesions noted, turgor normal, skin not dry, no jaundice, No spider nevi and no striae Rashes: no rashes Nails: normal Neuro General: oriented to person, oriented to place and oriented to time Cranial nerves: Yes Equal, round and reactive pupils present and Yes Normal hearing present Speech: No Abnormal speech present Extrem General: Yes normal to inspection, No clubbing, No cyanosis and No edema Psych Appearance: grossly normal and well kempt Mental Status: mental status grossly normal Speech and movement: Normal speech and movement present Affect: normal affect Attitude: cooperative Thought process: Normal thought process present and not confabulating Thought content: Normal thought content present Insight: Fair insight present (Psych) Judgement: Fair judgement present (Psych) Assessment & Plan Assessment & Plan (1) Diarrhea: Code(s): R19.7 - Diarrhea, unspecified Plan She continues to do very well and feels that no changes in her 2 sucralfate a day is needed. She says it is not perfect, but I feel better that I ever did. She remains satisfied with her GI regimen. ROV 6 mos. Medications: Refilled sucralfate 2 grams (2 x 1 gram) PO DAILY 120 tabs 6RF R19.7 - Diarrhea, unspecified Coding Level of Care Code Est Pt Level 3 (49606) Diagnoses Diarrhea R19.7
[2023-07-08 11:44] VITALS: BP 112/60; PULSE 60; BMI 34.5
== END 2023-07-08 12:01 | disposition home or self-care (01) ==
PROVIDERS: PCP Internal Medicine; Referring Provider Internal Medicine; Visit Provider Nurse Practitioner
DX: R19.7 Diarrhea, unspecified (principal)
CPT/HCPCS: 99213

== ENCOUNTER → 2023-07-08 11:41 | Outpatient (BNVA) | payer BC, SELFPAY | PROVIDERS: PCP Internal Medicine; Visit Provider Nurse Practitioner ==

== ENCOUNTER 2023-07-09 14:27 | Outpatient (AMB) | payer BC, SELFPAY ==
[2023-07-09 14:34] VITALS: BP 124/76; PULSE 73; O2SAT 95; BMI 34.5
--- NOTE | 2023-07-09 14:34 | A.OFFPC_ITS ---
Vital Signs 07/09/23 14:34 Height 5 ft 7 in Weight 220 lb 2 oz BMI 34.5 BP 124/76 Blood Pressure Location Lt brachial Position Sitting Pulse 73 Pulse Source Pulse Oximeter Pulse Oximetry (%) 95 Oxygen Delivery Method Room Air Intake Visit Reasons: Annual PE Allergies No Known Allergies Allergy (Verified 07/08/23 11:47) Medication List - Last Reconciled 07/09/23 by Amy Wade MD atenolol 25 mg PO BID calcium carbonate (Calcium 600) PO DAILY estradiol 1 patch transdermal 2XW famotidine (Pepcid) 20 mg PO DAILY PRN fexofenadine (Cathy Allergy) 180 mg PO DAILY solifenacin 5 mg PO DAILY sucralfate 2 grams (2 x 1 gram) PO DAILY Tobacco use date assessed: 07/05/22 Dental Screening Dental Screen Date: 07/09/23 Did you have a dental visit in the last 12 months?: Yes Did you have a dental problem in the last 6 months where you did not have access to dental care?: No Was dental information given to patient?: Patient has dentist HPI Annual PE HPI Details Patient is a 48-year-old female came in today for physical examination Patient is complaining of pain both thumb since fall of last year Patient says that she had similar problem in the past but then it was resolved after few weeks but this time it has not getting better She is due for mammogram Patient have OBGYN Pap smear and breast exam through them I was ordered labs to be done fasting BMI is elevated need to lose weight She is seeing telecommunications equipment installer for the management of palpitations and blood pressure Patient also have dyspepsia so she is reluctant to take any NSAIDs for her thumb pain PFSH Medical History Environmental allergies Surgical History Hx of colonoscopy History of endoscopy History of hysterectomy Family History Mother HTN (hypertension) Father HTN (hypertension) Other Substance use disorder Social History Housing: House Alcohol intake: current Alcohol intake frequency: holidays/special occasions only Patient Tobacco Use Status: Never used Tobacco e-Cigarette/Vaping Use: Never Used Current occupational status: employed Cognitive needs: No Hearing needs: No Vision needs: Yes Questionnaire Thrive Questionnaire Date Thrive assessed: 09/25/21 ROSALINDA-7 AMB Questionnaire ROSALINDA-7 Date ROSALINDA - 7 assessed: 05/16/21 Source: Developed by Drs. Triston Gil, Elina Corrigan, Almas Pastrana and colleagues, with an educational niko from [employer]. Review of Systems Const Denies chills, Denies fever(s) and Denies headache(s) Eyes Denies blurry vision ENT Denies headache(s), Denies nasal discharge, Denies nasal obstruction, Denies odynophagia and Denies sinus pain Card Denies chest pain at rest and Denies chest pain with activity Resp Denies cough and Denies hemoptysis GI Denies diarrhea, Denies odynophagia, Denies vomiting and Denies hematemesis Reports as per HPI Musc Denies abnormal gait Skin/Breast Reports as per HPI Neuro Denies Neuro-related abnormal movements, Denies Abnormal speech present, Denies abnormal gait, Denies headache(s) and Denies Sensory deficit (Neuro) Psych Denies mood swings and Denies paranoia Endo Reports as per HPI Derik/Lymph Reports as per HPI Aller/Immun Reports as per HPI Physical exam (Primary Care) Vital Signs: Last Vital Signs Pulse 73 07/09/23 14:34 BP 124/76 07/09/23 14:34 Pulse Ox 95 07/09/23 14:34 Oxygen Delivery Method Room Air 07/09/23 14:34 BMI result Body Mass Index 34.5 Tobacco/Smoking Status: Tobacco use Status Tobacco use date assessed 07/05/22 07/09/23 14:37 Patient Tobacco Use Status Never used Tobacco 07/09/23 14:37 e-Cigarette/Vaping Use Never Used 07/09/23 14:37 Thrive Assessment: Date of Thrive Assessment Date Thrive assessed 09/25/21 07/09/23 14:37 Const General: cooperative, comfortable and no acute distress Orientation/consciousness: patient oriented x3 HENMT Head: Yes normocephalic and Yes atraumatic Eyes General: appearance normal, both eyes and all related structures Pupils: Equal, round and reactive pupils present EOM: EOMs intact bilaterally Neck Neck: Yes supple and No lymphadenopathy Thyroid: Thyroid normal Lymphatic: no lymphadenopathy noted Resp Effort & Inspection: normal respiratory effort and able to speak in complete sentences Auscultation: clear to auscultation bilaterally Cardio Heart sounds: S1 normal heart sound present and S2 normal heart sound present GI Palpation (GI): Soft to palpation and nontender Auscultation: normal bowel sounds General: Yes no CVA tenderness Back/Spine/Pelvis Back: no CVA tenderness Skin General skin exam: elasticity normal and turgor normal Neuro General: patient oriented x3 and gait normal Cranial nerves: Yes Equal, round and reactive pupils present Speech: No Abnormal speech present Sensory Exam: No Sensory deficit (Neuro) Coordination: tandem gait normal and Romberg test negative Extrem Other: Both thumbs with full range of motion General: Yes normal exam except as noted and No edema Assessment and Plan Assessment & Plan (1) Encounter for general adult medical examination with abnormal findings: Code(s): Z00.01 - Encounter for general adult medical examination with abnormal findings (2) Bilateral thumb pain: Code(s): M79.644 - Pain in right finger(s); M79.645 - Pain in left finger(s) (3) Hypertension, essential: Code(s): I10 - Essential (primary) hypertension (4) Environmental allergies: Code(s): Z91.09 - Other allergy status, other than to drugs and biological substances (5) Dyspepsia: Code(s): R10.13 - Epigastric pain (6) Chronic interstitial cystitis: Code(s): N30.10 - Interstitial cystitis (chronic) without hematuria (7) Obesity due to excess calories: Code(s): E66.09 - Other obesity due to excess calories Qualifiers: Body mass index: BMI 34.0-34.9 Obesity classification: adult class 1 (BMI 30 - 34.9) Serious obesity comorbidity presence: with serious comorbidity Qualified Code(s): E66.09 - Other obesity due to excess calories; Z68.34 - Body mass index [BMI] 34.0-34.9, adult (8) Arthrosis: Code(s): M19.90 - Unspecified osteoarthritis, unspecified site Plan Patient is a 48-year-old female came in today for physical examination Patient is complaining of pain both thumb since fall of last year Patient says that she had similar problem in the past but then it was resolved after few weeks but this time it has not getting better She is due for mammogram Patient have OBGYN Pap smear and breast exam through them I was ordered labs to be done fasting BMI is elevated need to lose weight She is seeing telecommunications equipment installer for the management of palpitations and blood pressure Patient also have dyspepsia so she is reluctant to take any NSAIDs for her thumb pain Orders: Orders Comprehensive Firth. Panel Fast Today E66.09 - Other obesity due to excess calories, I10 - Essential (primary) hypertension, M19.90 - Unspecified osteo arthritis, unspecified site, M79.644 - Pain in right finger(s), M79.645 - Pain in left finger(s), N30.10 - Interstitial cystitis (chronic) without hematuria, R10.13 - Epigastric pain, R79.82 - Elevated C-reactive protein (CRP), Z00.01 - Encounter for general adult medical examination with abnormal findings, Z91.09 - Other allergy status, other than to drugs and biological substances Lipid Panel Today E66.09 - Other obesity due to excess calories, I10 - Essential (primary) hypertension, M19.90 - Unspecified osteoarthritis, unspecified site, M79.644 - Pain in right finger(s), M79.645 - Pain in left finger(s), N30.10 - Interstitial cystitis (chronic) without hematuria, R10.13 - Epigastric pain, R79.82 - Elevated C-reactive protein (CRP), Z00.01 - Encounter for general adult medical examination with abnormal findings, Z91.09 - Other allergy status, other than to drugs and biological substances TSH reflex Free T4 Today E66.09 - Other obesity due to excess calories, I10 - Essential (primary) hypertension, M19.90 - Unspecified osteoarthritis, unspecified site, M79.644 - Pain in right finger(s), M79.645 - Pain in left finger(s), N30.10 - Interstitial cystitis (chronic) without hematuria, R10.13 - Epigastric pain, R79.82 - Elevated C-reactive protein (CRP), Z00.01 - Encounter for general adult medical examination with abnormal findings, Z91.09 - Other allergy status, other than to drugs and biological substances Vitamin D 25-OH (D2 and D3) Today E66.09 - Other obesity due to excess calories, I10 - Essential (primary) hypertension, M19.90 - Unspecified osteoarthritis, unspecified site, M79.644 - Pain in right finger(s), M79.645 - Pain in left finger(s), N30.10 - Interstitial cystitis (chronic) without hematuria, R10.13 - Epigastric pain, R79.82 - Elevated C-reactive protein (CRP), Z00.01 - Encounter for general adult medical examination with abnormal findings, Z91.09 - Other allergy status, other than to drugs and biological substances Complete Blood Count Auto Diff Today E66.09 - Other obesity due to excess calories, I10 - Essential (primary) hypertension, M19.90 - Unspecified osteoarthritis, unspecified site, M79.644 - Pain in right finger(s), M79.645 - Pain in left finger(s), N30.10 - Interstitial cystitis (chronic) without hematuria, R10.13 - Epigastric pain, R79.82 - Elevated C-reactive protein (CRP), Z00.01 - Encounter for general adult medical examination with abnormal findings, Z91.09 - Other allergy status, other than to drugs and biological substances Rheumatoid Factor Today E66.09 - Other obesity due to excess calories, I10 - Essential (primary) hypertension, M19.90 - Unspecified osteoarthritis, unspecified site, M79.644 - Pain in right finger(s), M79.645 - Pain in left finger(s), N30.10 - Interstitial cystitis (chronic) without hematuria, R10.13 - Epigastric pain, R79.82 - Elevated C-reactive protein (CRP), Z00.01 - Encounter for general adult medical examination with abnormal findings, Z91.09 - Other allergy status, other than to drugs and biological substances Anti DNA DS Antibody Today E66.09 - Other obesity due to excess calories, I10 - Essential (primary) hypertension, M19.90 - Unspecified osteoarthritis, unspecified site, M79.644 - Pain in right finger(s), M79.645 - Pain in left finger(s), N30.10 - Interstitial cystitis (chronic) without hematuria, R10.13 - Epigastric pain, R79.82 - Elevated C-reactive protein (CRP), Z00.01 - Encounter for general adult medical examination with abnormal findings, Z91.09 - Other allergy status, other than to drugs and biological substances MM tomosynthesis screening BI Today Z12.31 - Encounter for screening mammogram for malignant neoplasm of breast Referrals Orthopedics Referral M79.644 - Pain in right finger(s), M79.645 - Pain in left finger(s) Coding Level of Care Code Est Pt Prev Care 40-64y(54179) Diagnoses Encounter for general adult medical examination with abnormal findings Z00.01 Bilateral thumb pain M79.644; M79.645 Hypertension, essential I10 Environmental allergies Z91.09 Dyspepsia R10.13 Chronic interstitial cystitis N30.10 Class 1 obesity due to excess calories with serious comorbidity and body mass index (BMI) of 34.0 to 34.9 in adult E66.09; Z68.34 Body mass index: BMI 34.0-34.9 Obesity classification: adult class 1 (BMI 30 - 34.9) Serious obesity comorbidity presence: with serious comorbidity Arthrosis M19.90
== END 2023-07-09 16:18 | disposition home or self-care (01) ==
PROVIDERS: PCP Internal Medicine; Visit Provider Internal Medicine
DX: Z00.00 Encounter for general adult medical examination without abnormal findings (principal); M79.644 Pain in right finger(s); M79.645 Pain in left finger(s); I10 Essential (primary) hypertension; Z91.09 Other allergy status, other than to drugs and biological substances; R10.13 Epigastric pain; N30.10 Interstitial cystitis (chronic) without hematuria; E66.09 Other obesity due to excess calories; Z68.34 Body mass index [BMI] 34.0-34.9, adult; M19.90 Unspecified osteoarthritis, unspecified site
CPT/HCPCS: 99396

== ENCOUNTER 2023-07-15 06:33 | Outpatient (REF) | payer BC, SELFPAY ==
[2023-07-15 11:12] LABS: MANUAL DIFF FLAG NO
[2023-07-15 11:38] LABS: Basophils Absolute Auto 0.1 X10*3/uL (0.0-0.2); Basophils Percent Auto 0.7 % (0-2); Eosinophils Absolute Auto 0.1 X10*3/uL (0.0-0.4); Eosinophils Percent Auto 1.9 % (0-4); Hematocrit 41.7 % (37.0-47.0); Hemoglobin 13.5 g/dl (12.0-16.0); Imm Gran Abs Auto 0.02 X10*3/uL (0.00-0.03); Imm Gran Pct Auto 0.3 % (0.0-0.4); Lymphocytes Percent Auto 28.7 % (20-40); Mean Corpuscular HGB Conc 32.4 g/dl (31.0-35.0); Mean Corpuscular Hemoglobin 30.5 pg (27.0-33.0); Mean Corpuscular Volume 94.1 fL (80.0-98.0); Mean Platelet Volume 12.6 fL (9.4-12.3); Monocytes Absolute Auto 0.5 X10*3/uL (0.1-1.2); Monocytes Percent Auto 6.6 % (2-11); Neutrophils Absolute Auto 4.3 x10*3/uL (2.0-8.3); Neutrophils Percent Auto 61.8 % (45-73); Platelet Count 288 X10*3/uL (160-400); Red Blood Count 4.43 X10*6/uL (4.20-5.50); Red Cell Distribution Width 12.7 % (11.0-16.0)
[2023-07-15 11:55] LABS: Rheumatoid Factor < 13.0 IU/mL (<15.0)
[2023-07-15 11:57] LABS: Alanine Aminotransferase 31 U/L (0-31); Albumin Level 4.4 g/dL (3.5-5.0); Alkaline Phosphatase 159 U/L (39-117); Anion Gap 12 (12-20); Aspartate Amino Transferase 29 U/L (5-31); Bilirubin Total 0.5 mg/dL (0.0-1.0); Blood Urea Nitrogen 13 mg/dL (9-16); Calcium 9.7 mg/dL (8.4-10.2); Carbon Dioxide 25 mmol/L (22-29); Chloride 110 mmol/L (96-108); Cholesterol 178 mg/dL (<200); Estimated Glomerular Filt Rate > 60; Glucose Fasting 93 mg/dL (60-99); HDL Cholesterol 40 mg/dL (>40); LDL Cholesterol Calculated 124 mg/dL (<100); Potassium 3.9 mmol/L (3.3-5.1); Sodium 143 mmol/L (135-145); Total Protein 7.6 g/dL (6.5-8.0); Triglycerides 72 mg/dL (<150)
[2023-07-16 19:38] LABS: Anti DNA DS Antibody 1 IU/mL
[2023-07-18 13:38] LABS: Vitamin D 25-OH, D2 <4 ng/mL; Vitamin D 25-OH, D3 31 ng/mL; Vitamin D 25-OH, Total 31 ng/mL (30-100)
== END 2023-07-15 06:34 | disposition home or self-care (01) ==
LOC: HO.HMGCLDS 06:33
PROVIDERS: PCP Internal Medicine; Visit Provider Internal Medicine
DX: Z00.01 Encounter for general adult medical examination with abnormal findings (principal); Z91.09 Other allergy status, other than to drugs and biological substances; R10.13 Epigastric pain; N30.10 Interstitial cystitis (chronic) without hematuria; E66.09 Other obesity due to excess calories; I10 Essential (primary) hypertension; R79.82 Elevated C-reactive protein (CRP); M19.90 Unspecified osteoarthritis, unspecified site; M79.644 Pain in right finger(s); M79.645 Pain in left finger(s)
CPT/HCPCS: 36415; 80053; 80061; 82306; 84443; 85025; 86225; 86431

== ENCOUNTER 2023-07-21 11:34 | Outpatient (REF) | payer BC, SELFPAY | END 2023-07-21 11:35 | disposition home or self-care (01) | LOC: HO.MAMMO 11:34 | PROVIDERS: PCP Internal Medicine; Visit Provider Internal Medicine | DX: Z12.31 Encounter for screening mammogram for malignant neoplasm of breast (principal) | CPT/HCPCS: 77063; 77067 ==

== ENCOUNTER → 2023-07-21 11:45 | Outpatient (BNV) | payer BC, SELFPAY | PROVIDERS: PCP Internal Medicine; Visit Provider Radiology Diagnostic Radiology | DX: Z12.31 Encounter for screening mammogram for malignant neoplasm of breast (principal) | CPT/HCPCS: 77063; 77067 ==

== ENCOUNTER 2023-08-18 14:00 | Outpatient (REF) | payer BC, SELFPAY ==
[2023-08-18 16:55] LABS: Alanine Aminotransferase 29 U/L (0-31); Albumin Level 4.3 g/dL (3.5-5.0); Alkaline Phosphatase 151 U/L (39-117); Aspartate Amino Transferase 31 U/L (5-31); Bilirubin Direct 0.2 mg/dL (0.0-0.5); Bilirubin Total 0.4 mg/dL (0.0-1.0); Total Protein 7.3 g/dL (6.5-8.0)
== END 2023-08-18 14:01 | disposition home or self-care (01) ==
LOC: HO.HMGCLDS 14:00
PROVIDERS: PCP Internal Medicine; Visit Provider Internal Medicine
DX: R79.89 Other specified abnormal findings of blood chemistry (principal)
CPT/HCPCS: 36415; 80076

== ENCOUNTER 2023-08-20 08:21 | Outpatient (AMB) | payer BC, SELFPAY ==
--- NOTE | 2023-08-20 08:23 | A.OFFVIS_ITS ---
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 Patient reports that she has had pain in both hands since about march. This pain onset while raking but was not a direct injury. She explains that her thumbs will lock in bent position, and she has stiffness with pain through the entire hands. Her symptoms improve through the day with activity and motions. She also reports that she is waking with bilateral foot pain and stiffness that improve through the day with motion. Allergies No Known Allergies Allergy (Verified 07/08/23 11:47) Medication List - Last Reconciled 08/20/23 by Delia Carter MD calcium carbonate (Calcium 600) PO DAILY estradiol 1 patch transdermal 2XW famotidine (Pepcid) 20 mg PO DAILY PRN fexofenadine (Cathy Allergy) 180 mg PO DAILY solifenacin 5 mg PO DAILY sucralfate 2 grams (2 x 1 gram) PO DAILY HPI HPI Comments History of Present Illness Details Denies specific injuries. Noticed after raking. 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 As soon as she lies down, both hands stiffen up, pain in the thumb and flexes . Denies numbness. Occasional waking up with numbness, but not a lot. Occasional swelling on the thumbs. Tends to drop things. Also mentions waking up with feet pain or after sitting, hurts when she starts to step, gets better with more walking. Denies family history of arthritis or rheumatologic disorders. 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 MSK: Inspection reveals appropriate head and neck positioning. No pain with palpation over the neck musculature. Cervical ROM was full. Spurling's sign negative. Hawkin's test is negative. No joint effusion noted. No deformity noted. No intrinsic hand weakness noted. No atrophy noted. No palpable nodules. Pamela test negative. Carpal compression test positive bilateral. Tinel sign negative. Slightly tender right CMC joint. No triggering. Strength is 5/5 in all muscle groups tested. No increased tone noted. Neurological: Neurologic examination of the upper and lower extremities was nonfocal with intact sensation, muscle stretch reflexes and without focal motor deficits . Ramon?s negative bilaterally. Gait is non-antalgic without loss of balance. Results Reviewed Results Reviewed: I reviewed records from the following: PCP Assessment & Plan Assessment & Plan (1) Bilateral hand pain: Code(s): M79.641 - Pain in right hand; M79.642 - Pain in left hand (2) Carpal tunnel syndrome on both sides: Code(s): G56.03 - Carpal tunnel syndrome, bilateral upper limbs (3) Plantar fasciitis, bilateral: Code(s): M72.2 - Plantar fascial fibromatosis Plan Exam suggestive of carpal tunnel syndrome. Did not see any trigger finger on exam. Low suspicion for CMC arthritis, therefore sending her for hand x-rays. Start Carpal Tunnel Syndrome treatment with wrist splints at night. Avoid factors that exacerbate symptoms. Discussed with Carpal Tunnel Syndrome is. We will schedule for EMG. Feet pain possibly plantar fasciitis. Symptoms only when waking up or after prolonged sitting. We can trial night time ankle splints to prevent symptoms. Offered to send to OT. Patient decided to trial splints 1st. We will re- evaluate after EMG. Assessment and plan discussed with patient, and patient was agreeable. All questions were answered thoroughly. Delia Carter MD, CHLOE Board Certified, [place] [employer] and Rehabilitation (ABPMR) Board Certified, [place] [employer] Electro[employer] (ABEM) Orders: Orders NE nerve conduction velocity Today G56.03 - Carpal tunnel syndrome, bilateral upper limbs, M72.2 - Plantar fascial fibromatosis, M79.641 - Pain in right hand, M79.642 - Pain in left hand XR hand wrist RT Today G56.03 - Carpal tunnel syndrome, bilateral upper limbs, M72.2 - Plantar fascial fibromatosis, M79.641 - Pain in right hand, M79.642 - Pain in left hand NE electromyogram (EMG) Today G56.03 - Carpal tunnel syndrome, bilateral upper limbs, M72.2 - Plantar fascial fibromatosis, M79.641 - Pain in right hand, M79.642 - Pain in left hand XR hand wrist LT Today G56.03 - Carpal tunnel syndrome, bilateral upper limbs, M72.2 - Plantar fascial fibromatosis, M79.641 - Pain in right hand, M79.642 - Pain in left hand Coding Level of Care Code New Pt Level 4 (53180) Diagnoses Bilateral hand pain M79.641; M79.642 Carpal tunnel syndrome on both sides G56.03 Plantar fasciitis, bilateral M72.2
[2023-08-20 08:26] VITALS: BMI 35.5
== END 2023-08-20 09:52 | disposition home or self-care (01) ==
PROVIDERS: PCP Internal Medicine; Visit Provider Physical Medicine & Rehabilitation
DX: M79.641 Pain in right hand (principal); M79.642 Pain in left hand; G56.03 Carpal tunnel syndrome, bilateral upper limbs; M72.2 Plantar fascial fibromatosis
CPT/HCPCS: 99204

== ENCOUNTER 2023-08-20 08:21 | Outpatient (REF) | payer BC, SELFPAY ==
--- NOTE | ~2023-08-20 | XR_ITS ---
EXAMINATION: XR HAND/WRIST, RIGHT CLINICAL INFORMATION: Probable tunnel syndrome, bilateral upper limbs COMPARISON: None TECHNIQUE: PA, lateral, and oblique views of the right hand and wrist. Dedicated navicular view. FINDINGS: The bones are intact. No fracture. Alignment is anatomic. Joint spaces are maintained. No erosions or soft tissue calcifications. XR/XR hand wrist RT IMPRESSION: No bony abnormality.
--- NOTE | ~2023-08-20 | XR_ITS ---
EXAMINATION: XR HAND/WRIST, LEFT CLINICAL INFORMATION: Carpal tunnel syndrome, bilateral upper hands COMPARISON: Same-day right hand TECHNIQUE: PA, lateral, and oblique views of the left hand and wrist. Dedicated navicular view. FINDINGS: The bones are intact. No fracture. Alignment is anatomic. Joint spaces are maintained. No erosions or soft tissue calcifications. XR/XR hand wrist LT IMPRESSION: No bony abnormality.
== END 2023-08-20 08:22 | disposition home or self-care (01) ==
LOC: HO.HOSX 08:21
PROVIDERS: PCP Internal Medicine; Visit Provider Physical Medicine & Rehabilitation
DX: M79.641 Pain in right hand (principal); M79.642 Pain in left hand; G56.03 Carpal tunnel syndrome, bilateral upper limbs; M72.2 Plantar fascial fibromatosis
CPT/HCPCS: 73110; 73130

== ENCOUNTER 2023-09-05 12:42 | Outpatient (REF) | payer BC, SELFPAY ==
--- NOTE | 2023-09-05 12:45 | EMG_ITS ---
Chief complaint: Bilateral hand numbness, locking thumbs, mostly at night. Improved with wearing wrist splints. Reason for referral: Evaluate for Carpal Tunnel Syndrome Procedure done: Bilateral upper extremities NCS/EMG Precautions and/or limitations: None The limb temperature was monitored continuously and remained between 32-36 degrees C during the performance of the NCS. Nerve Conduction Studies Anti Sensory Summary Table ?Stim Site NR Onset (ms) Norm Onset (ms) Peak (ms) Norm Peak (ms) O-P Amp (?V) Norm O-P Amp Site1 Site2 Delta-0 (ms) Dist (cm) Blake (m/s) Norm Blake (m/s) Left Median Anti Sensory (2nd Digit) Wrist ? 2.4 3.1 <3.6 45.3 >10 Wrist 2nd Digit 2.4 14.0 58 Right Median Anti Sensory (2nd Digit) Wrist ? 2.3 3.0 <3.6 62.0 >10 Wrist 2nd Digit 2.3 14.0 61 Left Ulnar Anti Sensory (5th Digit) Wrist ? 2.3 2.9 <3.7 48.2 >15.0 Wrist 5th Digit 2.3 14.0 61 Right Ulnar Anti Sensory (5th Digit) Wrist ? 2.0 2.8 <3.7 41.7 >15.0 Wrist 5th Digit 2.0 14.0 70 Motor Summary Table ?Stim Site NR Onset (ms) Norm Onset (ms) O-P Amp (mV) Norm O-P Amp iAmp (mV) Amp (1st) (%) Site1 Site2 Delta-0 (ms) Dist (cm) Blake (m/s) Norm Blake (m/s) Left Median Motor (Abd Poll Brev) Wrist ? 2.8 <3.9 12.2 >4.5 14.5 100.0 Elbow Wrist 3.6 20.0 56 >45 Elbow ? 6.4 11.1 13.0 91.0 Right Median Motor (Abd Poll Brev) Wrist ? 3.0 <3.9 9.5 >4.5 11.5 100.0 Elbow Wrist 4.0 21.0 53 >45 Elbow ? 7.0 9.4 11.3 98.9 Left Ulnar Motor (Abd Dig Minimi) Wrist ? 2.6 <3.0 8.0 >5 9.1 100.0 B Elbow Wrist 2.8 18.0 64 >45 B Elbow ? 5.4 8.1 9.2 101.3 A Elbow B Elbow 1.0 10.0 100 >45 A Elbow ? 6.4 7.9 9.0 98.8 Right Ulnar Motor (Abd Dig Minimi) Wrist ? 2.6 <3.0 9.9 >5 11.3 100.0 B Elbow Wrist 2.9 17.0 59 >45 B Elbow ? 5.5 9.7 11.1 98.0 A Elbow B Elbow 1.0 10.0 100 >45 A Elbow ? 6.5 9.6 11.0 97.0 Comparison Summary Table ?Stim Site NR Peak (ms) Norm Peak (ms) P-T Amp (?V) Site1 Site2 Delta-P (ms) Norm Delta (ms) Right Median/Radial Dig I Comparison (Digit 1 - 10cm) Median ? 2.6 <2.9 70.4 Median Radial 0.4 Radial ? 2.2 <2.8 27.6 EMG ?Side Muscle Nerve Root Ins Act Fibs Psw Amp Dur Poly Recrt Int Pat Comment Right 1stDorInt Ulnar C8-T1 Nml Nml Nml Nml Nml 0 Nml Complete Right FlexCarRad Median C6-7 Nml Nml Nml Nml Nml 0 Nml Complete Right Biceps Musculocut C5-6 Nml Nml Nml Nml Nml 0 Nml Complete Right Triceps Radial C6-7-8 Nml Nml Nml Nml Nml 0 Nml Complete Right Deltoid Axillary C5-6 Nml Nml Nml Nml Nml 0 Nml Complete Left 1stDorInt Ulnar C8-T1 Nml Nml Nml Nml Nml 0 Nml Complete Left FlexCarRad Median C6-7 Nml Nml Nml Nml Nml 0 Nml Complete Left Biceps Musculocut C5-6 Nml Nml Nml Nml Nml 0 Nml Complete Left Triceps Radial C6-7-8 Nml Nml Nml Nml Nml 0 Nml Complete Left Deltoid Axillary C5-6 Nml Nml Nml Nml Nml 0 Nml Complete FINDINGS: All motor and sensory nerves tested showed normal latencies, amplitudes and conduction velocities. Concentric needle EMG was performed in selected muscles of the bilateral upper extremities. Study did not reveal signs of electric abnormalities as shown in the table below. IMPRESSION: 1. This is a normal study. 2. There is no electrodiagnostic evidence for median neuropathy, ulnar neuropathy, brachial plexopathy, or cervical radiculopathy. CLINICAL COMMENT: Continue wrist splints at night. Call physiatry office if getting worse. May repeat study 6 months if needed Thank you for your kind referral. Delia Carter MD, CHLOE Board Certified, [place] [employer] and [employer] (ABPMR) Board Certified, [place] Board [employer] Electrodiagnostic [employer] (ABEM) CODIN 27551 x 2 MTDD
== END 2023-09-05 12:43 | disposition home or self-care (01) ==
LOC: HO.NEURO 12:42
PROVIDERS: PCP Internal Medicine; Visit Provider Physical Medicine & Rehabilitation
DX: G56.03 Carpal tunnel syndrome, bilateral upper limbs (principal); M72.2 Plantar fascial fibromatosis
CPT/HCPCS: 95886; 95911

== ENCOUNTER → 2023-09-05 12:45 | Outpatient (BNV) | payer BC, SELFPAY | PROVIDERS: PCP Internal Medicine; Visit Provider Physical Medicine & Rehabilitation | DX: M79.641 Pain in right hand (principal); M79.642 Pain in left hand; R20.2 Paresthesia of skin | CPT/HCPCS: 95886; 95911 ==

== ENCOUNTER 2024-01-14 14:09 | Outpatient (AMB) | payer BC, SELFPAY ==
[2024-01-14 14:19] VITALS: BP 116/60; PULSE 88; BMI 34.9
--- NOTE | 2024-01-14 14:19 | A.OFFVIS_ITS ---
Vital Signs 01/14/24 14:19 Height 5 ft 6 in Weight 216 lb 0.848 oz BMI 34.9 BP 116/60 Blood Pressure Location Lt brachial Position Sitting Pulse 88 Pulse Source Monitor Intake Visit Reasons: 6 month f/u pushed earlier due to atenolol refill Allergies No Known Allergies Allergy (Verified 07/08/23 11:47) HPI Comments Details: 48-year-old female presents today for follow-up. She reports she has been doing well regarding her palpitations. She still has palpitations mostly at night and can occur a couple times a night. But since she has been exercising more her palpitations have improved. She does [place] and some ballet to keep herself mobile. She denies any chest pains, shortness of breath, or orthopnea. At this time she still wishes to not perform a sleep study at this time. 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 Cognitive needs: No Hearing needs: No Vision needs: Yes Review of Systems Const Denies weakness ENT Denies dizziness Card Denies chest pain, Denies chest pain with activity, Denies syncope, Denies rapid heart rate, Denies pedal edema, Denies edema, Denies leg edema, Denies lightheadedness, Denies palpitations, Denies dyspnea, Denies dyspnea on exertion and Denies orthopnea Resp Denies cough, Denies dyspnea and Denies dyspnea on exertion GI Denies hematochezia and Denies change in stool character Musc Denies abnormal gait, Denies muscle cramps, Denies muscle weakness, Denies numbness, Denies radiating pain into limb and Denies tingling Neuro Denies abnormal gait, Denies dizziness, Denies syncope, Denies numbness, Denies tingling and Denies weakness Endo Denies palpitations Physical Exam Vital Signs: Last Vital Signs Pulse 88 01/14/24 14:19 BP 116/60 01/14/24 14:19 BMI result Body Mass Index 34.9 Const General: healthy appearing and no acute distress Orientation/consciousness: patient oriented x3 HEENT Head: Yes normal to inspection Eyes General: appearance normal, both eyes and all related structures Neck Neck: Yes normal visual inspection Chest Chest palpation & inspection: normal inspection of the chest Resp Effort & Inspection: normal respiratory effort Auscultation: clear to auscultation bilaterally Cardio Jugular venous distension: no JVD Palpation: normal PMI Rate: regular rate Rhythm: regular rhythm Heart sounds: S1 normal heart sound present, S2 normal heart sound present, no click, no gallops, no murmurs and no rubs GI Inspection: Yes normal to inspection Palpation (GI): Soft to palpation Skin General skin exam: no rashes or lesions noted Neuro General: patient oriented x3 Extrem General: Yes normal to inspection Psych Appearance: grossly normal Assessment & Plan Assessment & Plan (1) Palpitations: Code(s): R00.2 - Palpitations Category: Medical (2) Hypertension, essential: Code(s): I10 - Essential (primary) hypertension Category: Medical Plan Palpitations occurred mostly at night. Patient is on atenolol 25 mg twice a day. Blood pressure is within good control. Monitor periodically at home. Reports some improvement with exercise. She is continuing to try to lose weight and exercise more to see if it helps with the palpitations. She wishes to not do a sleep study at this time. Discussed that if she has sleep apnea we could s end her over to a sleep medicine provider and they could assist with treatment, or ways for her to help treat any other underlying issues related to her sleep. Advised that if she decides she would like a sleep study or to be referred to sleep Medicine to let us know or her primary care provider. Last echcoardiogram 11/29/2021 showed normal LV size, thickness, systolic function, and wall motion. EF was 60-65%. We will repeat prior to next visit. Orders: Orders CA echo transthoracic complete 5 Months R00.2 - Palpitations Medications: New atenolol 25 mg PO BID 180 tabs 3RF 90 days Coding Level of Care Code Est Pt Level 3 (36390) Diagnoses Palpitations R00.2 Hypertension, essential I10
== END 2024-01-14 14:46 | disposition home or self-care (01) ==
PROVIDERS: PCP Internal Medicine; Visit Provider Nurse Practitioner
DX: R00.2 Palpitations (principal); I10 Essential (primary) hypertension
CPT/HCPCS: 93010; 99213

== ENCOUNTER → 2024-01-14 14:09 | Outpatient (BNVA) | payer BC, SELFPAY | PROVIDERS: PCP Internal Medicine; Visit Provider Nurse Practitioner | DX: R00.2 Palpitations (principal); I10 Essential (primary) hypertension; Z79.899 Other long term (current) drug therapy | CPT/HCPCS: 93005 ==

== ENCOUNTER 2024-01-20 11:27 | Outpatient (AMB) | payer BC, SELFPAY ==
--- NOTE | 2024-01-20 11:31 | A.OFFVIS_ITS ---
Vital Signs 01/20/24 11:35 Height 5 ft 6 in Weight 214 lb 4.629 oz BMI 34.6 BP 93/47 L Blood Pressure Location Lt brachial Position Sitting Pulse 56 Intake Visit Reasons: 6 month follow up Diarrhea Intake Note: Patient in office today in follow up of IBS with diarrhea. CC: She reports doing well and denies having any new GI concerns today. Allergies No Known Allergies Allergy (Verified 01/20/24 11:36) HPI HPI 6 month follow up Diarrhea: Details: Assessment & Plan (1) Diarrhea: Code(s): R19.7 - Diarrhea, unspecified Plan She continues to do very well and feels that no changes in her 2 sucralfate a day is needed. She says it is not perfect, but I feel better that I ever did. She remains satisfied with her GI regimen. ROV 6 mos. Medications: Refilled sucralfate 2 grams (2 x 1 gram) PO DAILY 120 tabs 6RF R19.7 - Diarrhea, unspecified TODAY'S VISIT She continues to do well on her carafate. No other new health problems and she is happy with her regimen. ROV 6 mos. 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 Cognitive needs: No Hearing needs: No Vision needs: Yes Review of Systems Const Denies fatigue, Denies fever(s), Denies night sweats, Denies poor appetite and Denies weight loss Eyes Details: glasses Reports requires corrective lenses ENT Reports Normal hearing present, Denies dental pain, Denies dysphagia, Denies hearing loss, Denies mouth pain, Denies odynophagia, Denies throat swelling, Denies tongue swelling and Reports other (Dentition adequate) Card Reports no additional complaints Resp Reports no additional complaints GI Details: Denies abdominal pain, Denies melena, Denies bloating, Denies hematochezia, Den ies constipation, Denies GI cramping, Denies dysphagia, Denies excessive flatus, Denies early satiety, Denies heartburn, Reports diarrhea, Denies nausea, Denies odynophagia, Denies vomiting and Denies hematemesis Skin/Breast Denies pruritus, Denies lesions, Denies rash and Denies jaundice Neuro Reports Normal hearing present and Denies Abnormal speech present Endo Denies fatigue Aller/Immun Denies throat swelling and Denies tongue swelling Physical Exam Vital Signs: Last Vital Signs Pulse 56 01/20/24 11:35 BP 93/47 L 01/20/24 11:35 BMI result Body Mass Index 34.6 Const General: cooperative, no acute distress, well developed and well groomed Nutritional Appearance: well nourished and obese Orientation/consciousness: oriented to person, oriented to place and oriented to time Limitations: No language barrier HEENT Head: Yes normocephalic and Yes atraumatic Eyes General: appearance normal, both eyes and all related structures Pupils: Equal, round and reactive pupils present Neck Neck: Yes normal visual inspection and Yes no lymphadenopathy Thyroid: Thyroid normal Resp Effort & Inspection: normal respiratory effort and able to speak in complete sentences Auscultation: clear to auscultation bilaterally Cardio Rate: regular rate Rhythm: regular rhythm Heart sounds: Normal, physiologic split S2 sound present Peripheral pulses: radial pulses present and posterior tibial pulses present GI Inspection: No distended, No Abdominal panniculus present and Yes obesity Palpation (GI): Soft to palpation, nontender, no guarding, not rigid and No hepatosplenomegaly present Percussion: Yes normal to percussion Auscultation: normal bowel sounds Rectal Exam - Female: deferred Skin General skin exam: no rashes or lesions noted, turgor normal, skin not dry, no jaundice, No spider nevi and no striae Rashes: no rashes Nails: normal Neuro General: oriented to person, oriented to place and oriented to time Cranial nerves: Yes Equal, round and reactive pupils present and Yes Normal hearing present Speech: No Abnormal speech present Extrem General: Yes normal to inspection, No clubbing, No cyanosis and No edema Psych Appearance: grossly normal and well kempt Mental Status: mental status grossly normal Speech and movement: Normal speech and movement present Affect: normal affect Attitude: cooperative Thought process: Normal thought process present and not confabulating Thought content: Normal thought content present Insight: Good insight present (Psych) Judgement: Good judgement present (Psych) Assessment & Plan Assessment & Plan (1) Diarrhea: Code(s): R19.7 - Diarrhea, unspecified Category: Medical Plan She continues to do well on her carafate. No other new health problems and she is happy with her regimen. ROV 6 mos. Medications: Changed From sucralfate 2 grams (2 x 1 gram) PO DAILY 120 tabs 6RF R19.7 - Diarrhea, unspecified To sucralfate 2 grams (2 x 1 gram) PO DAILY 120 tabs 6RF R19.7 - Diarrhea, unspecified Coding Level of Care Code Est Pt Level 3 (16048) Diagnoses Diarrhea R19.7
[2024-01-20 11:35] VITALS: BP 93/47; PULSE 56; BMI 34.6
== END 2024-01-20 11:48 | disposition home or self-care (01) ==
PROVIDERS: PCP Internal Medicine; Visit Provider Nurse Practitioner
DX: R19.7 Diarrhea, unspecified (principal)
CPT/HCPCS: 99213

== ENCOUNTER → 2024-01-20 11:27 | Outpatient (BNVA) | payer BC, SELFPAY | PROVIDERS: PCP Internal Medicine; Visit Provider Nurse Practitioner ==

== ENCOUNTER → 2024-06-15 14:42 | Outpatient (REF) | payer BC, SELFPAY ==
--- NOTE | 2024-06-15 14:45 | CA_ITS ---
Transthoracic Echocardiogram Patient (Last, First, Middle): Aparna Zimmerman S Gender: Female Date of : 1975 Age: 49 Procedure Date: 06/15/2024 Procedure Type: Transthoracic Echocardiogram Location: OP Height: 170. cm Weight: 99.79 kg BSA: 2.10 m2 Heart Rate: 51 bpm BP: 128 / 75 mmHg Yarder Engineer: BARBARA Delgado MD: Aurora Martinez NP Propeller Engineer: Titi Stern MD Symptoms: R00.2 - Palpitations Study Quality: Adequate w/Contrast ECG Rhythm: Bradycardia Conclusions: - Normal study Findings Procedure Information Contrast agent, definity, is being given per protocol without apparent complications. Left Ventricle Normal left ventricular size, thickness, and systolic function. The visually estimated ejection fraction is between 55-60%. Diastolic function is normal for age. Right Ventricle Normal right ventricular cavity size and systolic function. Atria Both atria are normal in size. There is no evidence of interatrial shunt. Aortic Valve Normal aortic valve structure and function. There is no aortic valve stenosis. There is no aortic valve regurgitation. Mitral Valve Normal mitral valve structure and function. There is trace mitral valve regurgitation. There is no mitral valve stenosis. Pulmonic Valve The pulmonic valve is likely normal. There is trace pulmonic valve regurgitation. Tricuspid Valve Normal tricuspid valve structure. There is trace tricuspid valve regurgitation. The right ventricular systolic pressure is normal. The right ventricular systolic pressure is 17 mmHg. Normal right atrial pressure. There is no evidence of pulmonary hypertension. Great Vessels All visible segments of the aorta are normal in size. The pulmonary artery was not well visualized. There is no dilatation of the ascending aorta measuring 3.00 cm. Venous The inferior vena cava is normal in size and collapses greater than 50% with inspiration. Pericardium/Pleural There is no evidence of pericardial effusion. Prior Study Comparison Changes noted compared to prior study dated: 11/29/2021. Aorta is not enlarged Measurements 2D Linear Measurements IVSd: 0.73 0.6-0.9/0.6-1.0 cm LVIDd: 5.30 3.9-5.3/4.2-5.9 cm LVIDd Index: 2.52 2.4-3.2/2.2-3.1 cm/m2 LVIDs: 3.38 2.0-3.6 cm LVPWd: 0.89 0.7-1.1 cm LA Diam: 3.70 2.7-3.8/3.0-4.0 cm LAIDs Index: 1.76 1.5-2.3 cm/m2 LV Mass: 189.80 67-162/88-224 g LV Mass Index: 90.38 43-95/49-115 g/m2 LVOT Diam: 2.00 3.0+(-)1.3 cm 2D Systolic Function EF 4C: 53.90 >55% EF 2C: 59.70 >55% EF BiP: 56.90 >55% Mitral Valve MV Pk E: 0.69 MV PK A: 0.53 MV Decel Time: 331.00 E/A: 1.30 E'Lateral: 8.81 E'Medial: 7.72 E/E' Med: 9.00 E/E' Lat: 7.90 PHT: 97.00 MVA PHT: 2.27 Decel [place]: 2.10 Aortic Valve AoV Pk Blake: 1.43 AoV Mn Blake: 0.97 AoV VTI: 0.34 AoV Pk Grad: 8.00 Aov Mn Grad: 4.00 ESMER Cont.VTI: 2.35 LVOT LVOT Pk Blake: 1.08 LVOT Mn Lbake: 0.72 LVOT VTI: 0.25 LVOT Pk Grad: 5.00 LVOT Mn Grad: 2.00 LVOT Diam: 2.00 LVOT Area: 3.14 Diastolic Function MV Pk E: 0.69 MV Pk A: 0.53 E/A: 1.30 E'Medial: 7.72 E/E' Med: 9.00 E' Laterial: 8.81 E/E' Lat: 7.90 Right Ventricle TAPSE (mm): 24.00 TVS' Blake: 9.90 Tricuspid Valve TR Pk Blake: 1.89 TR Pk Grad: 14.00 RA Press: 3.00 RVSP: 17.00 Great Vessels Aorta Sinus of Valsalva: 3.40 2.0-3.5 cm Ao Asc: 3.00 2.1-3.4 cm Ao Arch: 3.10 Pulmonary Valve PV Pk Blake: 0.79 Peak PV Grad: 2.00 Updated in Other Vendor System with Status of Final Titi Stern MD electronically signed on 06/16/2024 8:46:57 AM with status of Final
== END ==
LOC: HO.CARD 14:42
PROVIDERS: PCP Internal Medicine; Visit Provider Internal Medicine Cardiovascular Disease
DX: R00.2 Palpitations (principal)
CPT/HCPCS: 93306; Q9957

== ENCOUNTER → 2024-06-15 14:45 | Outpatient (BNV) | payer BC, SELFPAY | PROVIDERS: PCP Internal Medicine; Visit Provider Internal Medicine Cardiovascular Disease | DX: R00.2 Palpitations (principal) | CPT/HCPCS: 93306 ==

== ENCOUNTER 2024-07-05 09:49 | Outpatient (AMB) | payer BC, SELFPAY ==
[2024-07-05 10:15] VITALS: BP 100/60; PULSE 56; BMI 36.1
--- NOTE | 2024-07-05 10:15 | MHC.OFFVIS ---
Vital Signs 07/05/24 10:15 Height 5 ft 6 in Weight 223 lb 15.834 oz BMI 36.1 BP 100/60 Blood Pressure Location Lt brachial Position Sitting Pulse 56 Pulse Source Pulse Oximeter Intake Visit Reasons: 6 mth f/up- echo Intake Note: 6 mth f/up echo [employer] Required: No Accompanied by: Self / Same As Patient Allergies No Known Allergies Allergy (Verified 01/20/24 11:36) Medication List - Last Reconciled 07/05/24 by Addi Sandoval MD atenolol 25 mg PO BID 90 days calcium carbonate-vitamin D3 600 mg-5 mcg (200 unit) (Calcium 600 + D(3)) 1 cap PO DAILY estradiol 0.5 mg PO DAILY famotidine (Pepcid) 20 mg PO DAILY PRN fexofenadine (Cathy Allergy) 180 mg PO DAILY solifenacin 5 mg PO DAILY sucralfate 2 grams (2 x 1 gram) PO DAILY HPI Comments Details: 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 She has been experiencing almost daily palpitations at nighttime since May 2021. She said she wakes up from sleep with palpitations. Occasionally also feels short of breath and at times just startles and wakes up. Denying any snoring but has daytime sleepiness and fatigue. No headaches or nighttime sweating. She is denying chest pain or significant shortness of breath. She also was diagnosed with hypertension and was started on atenolol and her blood pressure control appears good. No history of any thyroid issues. Echocardiography has shown normal biventricular function. There is very mild dilation of ascending aorta 3.3 cm. She has known history of hypertension and started on atenolol previously with good control of blood pressure. Was referred for sleep study which was normal. She had Holter monitor which showed supraventricular ectopy but no long runs of arrhythmia. She was advised to increase atenolol to 25 mg twice a day. She returns and has been feeling the same. She is saying that she has gained more weight and feels that her symptoms are more consistent and she has daytime sleepiness and fatigue also. 05/12/2023: She returns for follow-up. She has lost 8 lb. She continues to get some nighttime palpitations and startled feeling. We discussed about referral to Sleep Medicine before but she wishes to hold off on that again. 07/05/24: Here for f/u. She has no CP or SOB. She continues to have nighttime palpitations. She has daytimes sleepiness and fatigue. Infrequent headaches. 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 Cognitive needs: No Hearing needs: No Vision needs: Yes Review of Systems Const Denies chills, Denies fatigue, Denies fever(s), Denies frequent falls, Denies weakness, Denies weight gain and Denies weight loss ENT Denies dizziness Card Denies chest pain, Denies leg edema, Denies lightheadedness, Denies palpitations, Denies dyspnea and Denies dyspnea on exertion Resp Denies cough, Denies dyspnea and Denies dyspnea on exertion GI Denies hematochezia Musc Denies abnormal gait, Denies muscle weakness, Denies numbness, Denies radiating pain into limb and Denies tingling Neuro Denies abnormal gait, Denies dizziness, Denies frequent falls, Denies numbness, Denies tingling and Denies weakness Endo Denies fatigue and Denies palpitations Physical Exam Vital Signs: Last Vital Signs Pulse 56 07/05/24 10:15 BP 100/60 07/05/24 10:15 BMI result Body Mass Index 36.1 GENERAL APPEARANCE: in no acute distress, pleasant. NECK: no carotid bruit, no jugular venous distention. SKIN: no suspicious lesions, warm and dry. HEART: no murmurs, regular rate and rhythm. LUNGS: clear to auscultation bilaterally. ABDOMEN: soft, nontender. EXTREMITIES: no edema. PERIPHERAL PULSES: equal. NEUROLOGIC: No gross deficits, AAO X 3 Assessment & Plan Assessment & Plan (1) Hypertension, essential: Code(s): I10 - Essential (primary) hypertension Category: Medical (2) Palpitations: Code(s): R00.2 - Palpitations Category: Medical Plan Pleasant 49 female who is here for follow-up. She has background of hypertension and is currently taking atenolol 25 mg twice a day. Blood pressure is borderline but she has no symptoms. She also had palpitations and we used beta-shalom for the same reason. Previously she was getting infrequent symptoms but now getting palpitations every night. She wakes up from sleep with palpitations every night. She has some features of sleep apnea and we discussed about sleep study. After some discussion we have decided to do a home sleep study to screen her for hypoxia and if required proceed with a full sleep study. I will also do 5 day Holter monitor to rule out any significant arrhythmia. She will continue diet and exercise. Thank you for allowing me to participate in the care of your patient. Please feel free to contact me if you have any questions. Orders: Orders RT home sleep study Today G47.30 - Sleep apnea, unspecified ECG 5 day holter monitor Today R00.2 - Palpitations Coding Level of Care Code Est Pt Level 4 (37722) Diagnoses Hypertension, essential I10 Palpitations R00.2
== END 2024-07-05 10:38 | disposition home or self-care (01) ==
PROVIDERS: PCP Internal Medicine; Visit Provider Internal Medicine Cardiovascular Disease
DX: I10 Essential (primary) hypertension (principal); R00.2 Palpitations
CPT/HCPCS: 99214

== ENCOUNTER → 2024-07-05 09:49 | Outpatient (BNVA) | payer BC, SELFPAY | PROVIDERS: PCP Internal Medicine; Visit Provider Internal Medicine Cardiovascular Disease ==

== ENCOUNTER 2024-07-13 10:43 | Outpatient (AMB) | payer BC, SELFPAY ==
[2024-07-13 10:45] VITALS: BP 126/80; PULSE 92; RESP 16; TEMP 36.6; O2SAT 96; BMI 35.7
--- NOTE | 2024-07-13 10:45 | A.OFFPC_ITS ---
Vital Signs 07/13/24 10:45 Height 5 ft 6 in Weight 221 lb 2 oz BMI 35.7 BP 126/80 Blood Pressure Location Lt brachial Position Sitting Respiration 16 Pulse 92 Pulse Source Pulse Oximeter Temp 98 F Temp Source Oral Pulse Oximetry (%) 96 Oxygen Delivery Method Room Air Intake Visit Reasons: Annual Pe Allergies No Known Allergies Allergy (Verified 07/13/24 10:46) Medication List - Last Reconciled 07/13/24 by Amy Wade MD atenolol 25 mg PO BID 90 days calcium carbonate-vitamin D3 600 mg-5 mcg (200 unit) (Calcium 600 + D(3)) 1 cap PO DAILY estradiol 0.5 mg PO DAILY famotidine (Pepcid) 20 mg PO DAILY PRN fexofenadine (Cathy Allergy) 180 mg PO DAILY solifenacin 5 mg PO DAILY sucralfate 2 grams (2 x 1 gram) PO DAILY Tobacco use date assessed: 07/13/24 Dental Screening Dental Screen Date: 07/13/24 Did you have a dental visit in the last 12 months?: Yes Did you have a dental problem in the last 6 months where you did not have access to dental care?: No Was dental information given to patient?: Patient has dentist HPI Annual Pe HPI Details Physical exam appointment - The patient is a 49-year-old female co ntinued to have palpitations. 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 Sandoval Atenolol is through Dr. Sandoval office that she is taking for palpitation and hypertension, blood pressure is well-controlled Patient is taking no medication from this office Health Maintenance - Lipid enzymes were noted to be high, a nd the patient is advised to repeat the lipid panel with a fasting blood test. - OBGYN visit is up to date, including a breast exam. - Mammogram is up to date. - Colonoscopy was completed a year or tw o ago and returned normal results. - The patient is actively managing her w eight by exercising regularly and improving dietary habits. Patient Instructions - Complete the home sleep test - Repeat the lipid panels with a fasting blood test. - Continue regular exercise and improved dietary habits for weight management. Review of Systems - General: No fever no chills - Neurological: No headaches no dizzin ess - Ear nose throat: No sore throat no hearing difficulty no ear pain - Cardiovascular: No syncope, no chest pain, no palpitations - Gastrointestinal: No nausea vomiting or diarrhea - Endocrine: No polyuria polydipsia no heat intolerance - Genitourinary: No dysuria - Skin: No new complaints Physical Exam General: Cooperative, healthy appearing, comfortable, no acute distress Orientation: Patient oriented x3 Limitations: None Head: Normal to inspection Ears: Within normal limit visually Nose: Normal external nose present Face and sinus: Normal facial exam Eyes: Appearance normal, extraocular movement intact pupils reactive Neck: Normal visual inspection and supple Respiratory: Normal respiratory effort and able to speak in complete sentences. Clear to auscultation, no stridor Breast exam through OBGYN Cardiovascular: S1 and S2 GI: Normal to inspection. Soft to palpation and nontender Skin: Turgor normal, no acute findings Neuro: Patient oriented x3, motor sensory intact, balance intact, tandem pass Extremities: Normal to inspection [facility] Medical History Encounter for general adult medical examination with abnormal findings Bladder disorder Breast screening Environmental allergies Surgical History Hx of colonoscopy History of endoscopy History of hysterectomy Family History Mother HTN (hypertension) Father HTN (hypertension) Other Substance use disorder Social History Housing: House Alcohol intake: current Alcohol intake frequency: holidays/special occasions only Patient Tobacco Use Status: Never used Tobacco e-Cigarette/Vaping Use: Never Used Current occupational status: employed 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 1. Little interest or pleasure in doing things: not at all 2. Feeling down, depressed, or hopeless: not at all 3. Trouble falling or staying asleep, or sleeping too much: several days 4. Feeling tired or having little energy: several days 5. Poor appetite or overeating: several days 6. Feeling bad about yourself - or that you are a failure or have let yourself or your family down: not at all 7. Trouble concentrating on things, such as reading the newspaper or watching television: not at all 8. Moving or speaking so slowly that other people could have noticed. Or the opposite - being so fidgety or restless that you have been moving around a lot more than usual: not at all 9. Thoughts that you would be better off or of hurting yourself in some way: not at all Total score: 3 Depression Screening Interpretation: Negative Depression Screening Done: Yes 29528 - PHQ-9 Billing: Yes Source: Developed by Drs. Triston Gil, Elina Corrigan, Almas Pastrana and colleagues, with an educational niko from [employer]. Thrive Questionnaire Date Thrive assessed: 07/13/24 I am a: Patient What is your living situation today?: I have a steady place to live Within the past 12 months, did the food you bought not last and you didn't have the money to get more?: Never true Within the past 12 months, did you worry whether your food would run out before you got money to buy more?: Never true Do you have trouble paying for medicines?: No Do you have trouble getting transportation to medical appointments?: No Do you have trouble paying your heating and electricity bill?: No Do you have trouble taking care of your child, family member or friend?: No Do you have trouble with day-to-day activities such as bathing, preparing meals, shopping, managing finances, etc.?: No Are you currently unemployed and looking for a job?: No Are you interested in more education?: No Please select the resources that you would like help with: None Currently or been in a relationship where the following occur: No concerns reported THRIVE Score: 0 AUDIT C Alcohol Use Questionnaire (AUDIT-C) 1. How often do you have a drink containing alcohol?: Monthly or less 2. How many drinks containing alcohol do you have on a typical day when you are drinking?: 1 or 2 3. How often do you have six or more drinks on one occasion?: Never Total Score: 1 Score Reviewed/Action Taken: Yes ROSALINDA-7 AMB Questionnaire ROSALINDA-7 Date ROSALINDA - 7 assessed: 07/13/24 Feeling nervous, anxious, or on edge: 1 = Several days Not being able to stop or control worryin = Several days Worrying too much about different things: 1 = Several days Trouble relaxin = Several days Being so restless that it is hard to sit still: 0 = Not at all Becoming easily annoyed or irritable: 0 = Not at all Feeling afraid as if something awful might happen: 0 = Not at all Total ROSALINDA-7 score (0-4 normal; 5-9 mild; 10-14 moderate; 15-21 severe): 4 Source: Developed by Drs. Triston Gil, Elina Corrigan, Almas Pastrana and colleagues, with an educational niko from [employer]. ROSALINDA-7 Assessment Billing ROSALINDA-7 Assessment Tool: ROSALINDA-7 Assessment 62656 Physical exam (Primary Care) Vital Signs: Last Vital Signs Temp 98 F 07/13/24 10:45 Pulse 92 07/13/24 10:45 Resp 16 07/13/24 10:45 BP 126/80 07/13/24 10:45 Pulse Ox 96 07/13/24 10:45 Oxygen Delivery Method Room Air 07/13/24 10:45 BMI result Body Mass Index 35.7 Tobacco/Smoking Status: Tobacco use Status Tobacco use date assessed 07/13/24 07/13/24 10:48 Patient Tobacco Use Status Never used Tobacco 07/13/24 10:48 e-Cigarette/Vaping Use Never Used 07/13/24 10:48 PHQ-9: PHQ-9 Score PHQ-9: Total score 3 07/13/24 10:48 Depression Screening Interpretation: Negative Thrive Assessment: Date of Thrive Assessment Date Thrive assessed 07/13/24 07/13/24 10:48 Currently or been in a relationship where the following occur: No concerns reported Coding Level of Care Code Est Pt Level 3 (74570) Est Pt Prev Care 40-64y(43059) Diagnoses Encounter for general adult medical examination with abnormal findings Z00.01 LFT elevation R79.89 Palpitations R00.2 Hypertension, essential I10 Class 1 obesity due to excess calories with serious comorbidity and body mass index (BMI) of 34.0 to 34.9 in adult E66.09; Z68.34 Body mass index: BMI 34.0-34.9 Obesity classification: adult class 1 (BMI 30 - 34.9) Serious obesity comorbidity presence: with serious comorbidity Dyspepsia R10.13 Additional Codes ROSALINDA-7 Assessment Billing - ROSALINDA-7 Assessment Tool: ROSALINDA-7 Assessment 14576 ([id number]) PHQ-9 - 82930 - PHQ-9 Billing: Yes ([id number]) Assessment & Plan Assessment & Plan (1) Encounter for general adult medical examination with abnormal findings: Code(s): Z00.01 - Encounter for general adult medical examination with abnormal findings Category: Medical (2) LFT elevation: Code(s): R79.89 - Other specified abnormal findings of blood chemistry Category: Medical (3) Palpitations: Code(s): R00.2 - Palpitations Category: Medical (4) Hypertension, essential: Code(s): I10 - Essential (primary) hypertension Category: Medical (5) Obesity due to excess calories: Code(s): E66.09 - Other obesity due to excess calories Category: Medical Qualifiers: Body mass index: BMI 34.0-34.9 Obesity classification: adult class 1 (BMI 30 - 34.9) Serious obesity comorbidity presence: with serious comorbidity Qualified Code(s): E66.09 - Other obesity due to excess calories; Z68.34 - Body mass index [BMI] 34.0-34.9, adult (6) Dyspepsia: Code(s): R10.13 - Epigastric pain Category: Medical Plan Physical exam appointment - The patient is a 49-year-old female continued to have palpitations. 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 Sandoval Atenolol is through Dr. Sandoval office that she is taking for palpitation and hypertension, blood pressure is well-controlled Patient is taking no medication from this office Health Maintenance - Lipid enzymes were noted to be high, and the patient is advised to repeat the lipid panel with a fasting blood test. - OBGYN visit is up to date, including a breast exam. - Mammogram is up to date. - Colonoscopy was completed a year or two ago and returned normal results. - The patient is actively managing her weight by exercising regularly and improving dietary habits. Patient Instructions - Complete the home sleep test - Repeat the lipid panels with a fasting blood test. - Continue regular exercise and improved dietary habits for weight management. Orders: Orders Complete Blood Count Auto Diff Today E66.09 - Other obesity due to excess calories, I10 - Essential (primary) hypertension, R00.2 - Palpitations, R10.13 - Epigastric pain, R79.89 - Other specified abnormal findings of blood chemistry, Z00.01 - Encounter for general adult medical examination with abnormal findings, Z68.34 - Body mass index [BMI] 34.0-34.9, adult Comprehensive [place]. Panel Fast Today E66.09 - Other obesity due to excess calories, I10 - Essential (primary) hypertension, R00.2 - Palpitations, R10.13 - Epigastric pain, R79.89 - Other specified abnormal findings of blood chemistry, Z00.01 - Encounter for general adult medical examination with abnormal findings, Z68.34 - Body mass index [BMI] 34.0-34.9, adult Vitamin D 25-OH (D2 and D3) Today E66.09 - Other obesity due to excess calories, I10 - Essential (primary) hypertension, R00.2 - Palpitations, R10.13 - Epigastric pain, R79.89 - Other specified abnormal findings of blood chemistry, Z00.01 - Encounter for general adult medical examination with abnormal findings, Z68.34 - Body mass index [BMI] 34.0-34.9, adult TSH reflex Free T4 Today E66.09 - Other obesity due to excess calories, I10 - Essential (primary) hypertension, R00.2 - Palpitations, R10.13 - Epigastric pain, R79.89 - Other specified abnormal findings of blood chemistry, Z00.01 - Encounter for general adult medical examination with abnormal findings, Z68.34 - Body mass index [BMI] 34.0-34.9, adult Lipid Panel Today E66.09 - Other obesity due to excess calories, I10 - Essential (primary) hypertension, R00.2 - Palpitations, R10.13 - Epigastric pain, R79.89 - Other specified abnormal findings of blood chemistry, Z00.01 - Encounter for general adult medical examination with abnormal findings, Z68.34 - Body mass index [BMI] 34.0-34.9, adult
== END 2024-07-13 11:12 | disposition home or self-care (01) ==
PROVIDERS: PCP Internal Medicine; Visit Provider Internal Medicine
DX: Z00.00 Encounter for general adult medical examination without abnormal findings (principal); E66.09 Other obesity due to excess calories; Z68.34 Body mass index [BMI] 34.0-34.9, adult; R79.89 Other specified abnormal findings of blood chemistry; R00.2 Palpitations; I10 Essential (primary) hypertension; R10.13 Epigastric pain

== ENCOUNTER → 2024-07-13 10:43 | Outpatient (BNVA) | payer BC, SELFPAY | PROVIDERS: PCP Internal Medicine; Visit Provider Internal Medicine | DX: Z00.01 Encounter for general adult medical examination with abnormal findings (principal); R79.89 Other specified abnormal findings of blood chemistry; R00.2 Palpitations; I10 Essential (primary) hypertension; E66.09 Other obesity due to excess calories; Z68.34 Body mass index [BMI] 34.0-34.9, adult; R10.13 Epigastric pain | CPT/HCPCS: 96127 ==

== ENCOUNTER 2024-07-16 06:49 | Outpatient (REF) | payer BC, SELFPAY ==
[2024-07-16 10:06] LABS: MANUAL DIFF FLAG NO
[2024-07-16 10:12] LABS: Basophils Absolute Auto 0.1 X10*3/uL (0.0-0.2); Basophils Percent Auto 0.6 % (0-2); Eosinophils Absolute Auto 0.2 X10*3/uL (0.0-0.4); Eosinophils Percent Auto 2.8 % (0-4); Hematocrit 39.6 % (37.0-47.0); Hemoglobin 12.8 g/dl (12.0-16.0); Imm Gran Abs Auto 0.02 X10*3/uL (0.00-0.03); Imm Gran Pct Auto 0.3 % (0.0-0.4); Lymphocytes Absolute Auto 1.9 X10*3/uL (1.2-4.9); Lymphocytes Percent Auto 23.8 % (20-40); Mean Corpuscular HGB Conc 32.3 g/dl (31.0-35.0); Mean Corpuscular Hemoglobin 30.3 pg (27.0-33.0); Mean Corpuscular Volume 93.6 fL (80.0-98.0); Mean Platelet Volume 12.3 fL (9.4-12.3); Monocytes Absolute Auto 0.5 X10*3/uL (0.1-1.2); Monocytes Percent Auto 6.8 % (2-11); Neutrophils Absolute Auto 5.1 x10*3/uL (2.0-8.3); Neutrophils Percent Auto 65.7 % (45-73); Platelet Count 271 X10*3/uL (160-400); Red Blood Count 4.23 X10*6/uL (4.20-5.50); Red Cell Distribution Width 12.7 % (11.0-16.0); White Blood Count 7.8 X10*3/uL (4.8-10.8)
[2024-07-16 10:31] LABS: Alanine Aminotransferase 25 U/L (0-31); Albumin Level 4.1 g/dL (3.5-5.0); Alkaline Phosphatase 132 U/L (39-117); Anion Gap 9 (12-20); Aspartate Amino Transferase 26 U/L (5-31); Bilirubin Total 0.7 mg/dL (0.0-1.0); Blood Urea Nitrogen 10 mg/dL (9-16); Calcium 9.6 mg/dL (8.4-10.2); Carbon Dioxide 28 mmol/L (22-29); Chloride 108 mmol/L (96-108); Cholesterol 179 mg/dL (<200); Estimated Glomerular Filt Rate > 60; Glucose Fasting 92 mg/dL (60-99); HDL Cholesterol 46 mg/dL (>40); LDL Cholesterol Calculated 115 mg/dL (<100); Potassium 4.3 mmol/L (3.3-5.1); Sodium 141 mmol/L (135-145); Total Protein 7.5 g/dL (6.5-8.0); Triglycerides 93 mg/dL (<150)
[2024-07-16 10:49] LABS: TSH reflex Free T4 1.58 uIU/mL (0.32-4.0)
[2024-07-20 17:12] LABS: Vitamin D 25-OH, D2 <4 ng/mL; Vitamin D 25-OH, D3 30 ng/mL; Vitamin D 25-OH, Total 30 ng/mL (30-100)
== END 2024-07-16 06:50 | disposition home or self-care (01) ==
LOC: HO.HMGCLDS 06:49
PROVIDERS: PCP Internal Medicine; Visit Provider Internal Medicine
DX: Z00.01 Encounter for general adult medical examination with abnormal findings (principal); R79.89 Other specified abnormal findings of blood chemistry; R00.2 Palpitations; I10 Essential (primary) hypertension; E66.09 Other obesity due to excess calories; Z68.34 Body mass index [BMI] 34.0-34.9, adult; R10.13 Epigastric pain
CPT/HCPCS: 36415; 80053; 80061; 82306; 84443; 85025

== ENCOUNTER 2024-07-26 11:37 | Outpatient (REF) | payer BC, SELFPAY ==
--- NOTE | ~2024-07-26 | MM_ITS ---
EXAMINATION: MM SCREENING DIGITAL BREAST TOMOSYNTHESIS, BILATERAL CLINICAL INFORMATION: Screening. Asymptomatic. COMPARISON: Mammography: Comparison is made with available priors TECHNIQUE: Digital breast mammography with tomosynthesis is performed in both the craniocaudal and mediolateral oblique views along with computer-aided detection (CAD). FINDINGS: There are scattered areas of fibroglandular density (ACR BI-RADS breast composition Category b). There are no significant masses, abnormal calcifications, or other abnormalities. MM/MM tomosynthesis screening BI IMPRESSION: No mammographic evidence of malignancy. ASSESSMENT: BI-RADS BI-RADS 1 - Negative RECOMMENDATION: Routine annual mammography screening. 1 year F/U This examination should not preclude the clinical evaluation of a suspicious palpable abnormality. This patient's information was entered into a reminder system with a target due date for their next mammogram. Electronically signed by: Mirta Etienne DO 07/27/2024 05:31 PM [facility]
== END 2024-07-26 11:38 | disposition home or self-care (01) ==
LOC: HO.MAMMO 11:37
PROVIDERS: PCP Internal Medicine; Visit Provider Internal Medicine
DX: Z12.31 Encounter for screening mammogram for malignant neoplasm of breast (principal)
CPT/HCPCS: 77063; 77067

== ENCOUNTER → 2024-07-26 11:45 | Outpatient (BNV) | payer BC, SELFPAY | PROVIDERS: PCP Internal Medicine; Visit Provider Internal Medicine | DX: Z12.31 Encounter for screening mammogram for malignant neoplasm of breast (principal) | CPT/HCPCS: 77063; 77067 ==

== ENCOUNTER → 2024-07-27 14:41 | Outpatient (REF) | payer BC, SELFPAY | LOC: HO.CARD 14:41 | PROVIDERS: PCP Internal Medicine; Visit Provider Internal Medicine Cardiovascular Disease | DX: R00.2 Palpitations (principal) | CPT/HCPCS: 93242 ==

== ENCOUNTER → 2024-07-27 14:47 | Outpatient (BNV) | payer BC, SELFPAY | PROVIDERS: PCP Internal Medicine; Visit Provider Internal Medicine Cardiovascular Disease | DX: R00.1 Bradycardia, unspecified (principal) | CPT/HCPCS: 93244 ==

== ENCOUNTER → 2024-08-31 13:50 | Outpatient (REF) | payer BC, SELFPAY | LOC: HO.SL 13:50 | PROVIDERS: PCP Internal Medicine; Visit Provider Internal Medicine Cardiovascular Disease | DX: G47.30 Sleep apnea, unspecified (principal) | CPT/HCPCS: 95806 ==

== ENCOUNTER → 2024-08-31 14:06 | Outpatient (BNV) | payer BC, SELFPAY | PROVIDERS: PCP Internal Medicine; Visit Provider Internal Medicine | DX: R06.83 Snoring (principal) | CPT/HCPCS: 95806 ==

== ENCOUNTER 2024-09-29 13:56 | Outpatient (AMB) | payer BC, SELFPAY ==
[2024-09-29 13:58] VITALS: BP 116/55; PULSE 70; O2SAT 98; BMI 35.4
--- NOTE | 2024-09-29 13:58 | MHC.OFFVIS ---
Vital Signs 09/29/24 13:58 Height 5 ft 6 in Weight 219 lb 9.286 oz BMI 35.4 BP 116/55 L Blood Pressure Location Lt brachial Position Sitting Pulse 70 Pulse Source Pulse Oximeter Pulse Oximetry (%) 98 Oxygen Delivery Method Room Air Intake Visit Reasons: Irritable bowel syndrome Intake Note: Pt presents to the office today for Irritable bowel syndrome. Allergies No Known Allergies Allergy (Verified 09/29/24 13:58) HPI HPI Irritable bowel syndrome: Details: Assessment & Plan (1) Diarrhea: Code(s): R19.7 - Diarrhea, unspecified Category: Medical Plan She continues to do well on her carafate. No other new health problems and she is happy with her regimen. ROV 6 mos. Medications: Changed From sucralfate 2 grams (2 x 1 gram) PO DAILY 120 tabs 6RF R19.7 - Diarrhea, unspecified To sucralfate 2 grams (2 x 1 gram) PO DAILY 120 tabs 6RF R19.7 - Diarrhea, unspecified TODAY'S VISIT She continues to do well and is very stable on her Carafate. The only other medication she is using his [id number] Pepcid which she pays for [id number]. She continues to be happy with her GI regimen. Since she has been so stable we will do yearly follow-ups ROV 1 year [facility] Medical History (Updated 09/29/24 @ 14:14 by RIMMA Parson) Encounter for general adult medical examination with abnormal findings Bladder disorder Breast screening Environmental allergies Surgical History Hx of colonoscopy History of endoscopy History of hysterectomy Family History Mother HTN (hypertension) Father HTN (hypertension) Other Substance use disorder Social History Housing: House Alcohol intake: current Alcohol intake frequency: holidays/special occasions only Patient Tobacco Use Status: Never used Tobacco e-Cigarette/Vaping Use: Never Used Current occupational status: employed 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 Cognitive needs: No Hearing needs: No Vision needs: Yes Review of Systems Const Denies fatigue, Denies fever(s), Denies night sweats, Denies poor appetite and Denies weight loss Eyes Details: glasses Reports requires corrective lenses ENT Reports Normal hearing present, Denies dental pain, Denies dysphagia, Denies hearing loss, Denies mouth pain, Denies odynophagia, Denies throat swelling, Denies tongue swelling and Reports other (Dentition adequate) Card Reports no additional complaints Resp Reports no additional complaints GI Details: Denies abdominal pain, Denies melena, Denies bloating, Denies hematochezia, Denies constipation, Denies GI cramping, Denies dysphagia, Denies excessive flatus, Denies early satiety, Denies heartburn, Denies diarrhea, Reports loose stools, Denies nausea, Denies odynophagia, Denies vomiting and Denies hematemesis Skin/Breast Denies pruritus, Denies lesions, Denies rash and Denies jaundice Neuro Reports Normal hearing present and Denies Abnormal speech present Endo Denies fatigue Aller/Immun Denies throat swelling and Denies tongue swelling Physical Exam Vital Signs: Last Vital Signs Pulse 70 09/29/24 13:58 BP 116/55 L 09/29/24 13:58 Pulse Ox 98 09/29/24 13:58 Oxygen Delivery Method Room Air 09/29/24 13:58 BMI result Body Mass Index 35.4 Const General: cooperative, no acute distress, well developed and well groomed Nutritional Appearance: well nourished and obese Orientation/consciousness: oriented to person, oriented to place and oriented to time Limitations: No language barrier HEENT Head: Yes normocephalic and Yes atraumatic Eyes General: appearance normal, both eyes and all related structures Pupils: Equal, round and reactive pupils present Neck Neck: Yes normal visual inspection and Yes no lymphadenopathy Thyroid: Thyroid normal Resp Effort & Inspection: normal respiratory effort and able to speak in complete sentences Auscultation: clear to auscultation bilaterally Cardio Rate: regular rate Rhythm: regular rhythm Heart sounds: Normal, physiologic split S2 sound present Peripheral pulses: radial pulses present and posterior tibial pulses present GI Inspection: No distended, Yes Abdominal panniculus present and Yes obesity Palpation (GI): Soft to palpation, nontender, no guarding, not rigid and No hepatosplenomegaly present Percussion: Yes normal to percussion Auscultation: normal bowel sounds Rectal Exam - Female: deferred Skin General skin exam: no rashes or lesions noted, turgor normal, skin not dry, no jaundice, No spider nevi and no striae Rashes: no rashes Nails: normal Neuro General: oriented to person, oriented to place and oriented to time Cranial nerves: Yes Equal, round and reactive pupils present and Yes Normal hearing present Speech: No Abnormal speech present Extrem General: Yes normal to inspection, No clubbing, No cyanosis and No edema Psych Appearance: grossly normal and well kempt Mental Status: mental status grossly normal Speech and movement: Normal speech and movement present Affect: normal affect Attitude: cooperative Thought process: Normal thought process present and not confabulating Thought content: Normal thought content present Insight: Good insight present (Psych) Judgement: Good judgement present (Psych) Assessment & Plan Assessment & Plan (1) Diarrhea: Code(s): R19.7 - Diarrhea, unspecified Category: Medical Plan She continues to do well and is very stable on her Carafate. The only other medication she is using his [id number] Pepcid which she pays for [id number]. She continues to be happy with her GI regimen. Since she has been so stable we will do yearly follow-ups ROV 1 year Medications: Changed From sucralfate 2 grams (2 x 1 gram) PO DAILY 120 tabs 6RF R19.7 - Diarrhea, unspecified To sucralfate 2 grams (2 x 1 gram) PO DAILY 180 tabs 1RF 90 days R19.7 - Diarrhea, unspecified Coding Level of Care Code Est Pt Level 3 (57261) Diagnoses Diarrhea R19.7
== END 2024-09-29 14:14 | disposition home or self-care (01) ==
LOC: HO.HGI 13:57
PROVIDERS: PCP Internal Medicine; Visit Provider Nurse Practitioner
DX: R19.7 Diarrhea, unspecified (principal)
CPT/HCPCS: 99213

== ENCOUNTER → 2024-09-29 13:56 | Outpatient (BNVA) | payer BC, SELFPAY | PROVIDERS: PCP Internal Medicine; Visit Provider Nurse Practitioner ==

== ENCOUNTER 2024-11-03 09:46 | Outpatient (AMB) | payer BC, SELFPAY ==
--- NOTE | 2024-11-03 10:18 | A.OFFVIS_ITS ---
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 She has been experiencing almost daily palpitations at nighttime since May 2021. She said she wakes up from sleep with palpitations. Occasionally also feels short of breath and at times just startles and wakes up. Denying any snoring but has daytime sleepiness and fatigue. No headaches or nighttime sweating. She is denying chest pain or significant shortness of breath. She also was diagnosed with hypertension and was started on atenolol and her blood pressure control appears good. No history of any thyroid issues. Echocardiography has shown normal biventricular function. There is very mild dilation of ascending aorta 3.3 cm. She has known history of hypertension and started on atenolol previously with good control of blood pressure. Was referred for sleep study which was normal. She had Holter monitor which showed supraventricular ectopy but no long runs of arrhythmia. She was advised to increase atenolol to 25 mg twice a day. She returns and has been feeling the same. She is saying that she has gained more weight and feels that her symptoms are more consistent and she has daytime sleepiness and fatigue also. 05/12/2023: She returns for follow-up. She has lost 8 lb. She continues to get some nighttime palpitations and startled feeling. We discussed about referral to Sleep Medicine before but she wishes to hold off on that again. 07/05/24: Here for f/u. She has no CP or SOB. She continues to have nighttime palpitations. She has daytimes sleepiness and fatigue. Infrequent headaches. 11/03/2024: She is here for follow-up. She continues to get nighttime palpitations. She startles in her sleep and wakes up and gets racing of her heart. She did 5 days Holter monitor with she marked the counter 23 times and was in sinus rhythm. She was frequently noticed to be in sinus bradycardia with heart rate below 60 beats per minute 51% of time. No significant arrhythmia noted. 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 Cognitive needs: No Hearing needs: No Vision needs: Yes Review of Systems Const Denies chills, Denies fatigue, Denies fever(s), Denies frequent falls, Denies weakness, Denies weight gain and Denies weight loss ENT Denies dizziness Card Denies chest pain, Denies leg edema, Denies lightheadedness, Reports palpitations, Denies dyspnea and Denies dyspnea on exertion Resp Denies cough, Denies dyspnea and Denies dyspnea on exertion GI Denies hematochezia Musc Denies abnormal gait, Denies muscle weakness, Denies numbness, Denies radiating pain into limb and Denies tingling Neuro Denies abnormal gait, Denies dizziness, Denies frequent falls, Denies numbness, Denies tingling and Denies weakness Endo Denies fatigue and Reports palpitations Physical Exam Vital Signs: Last Vital Signs Pulse 57 06/11/25 10:19 BP 110/62 11/03/24 10:19 BMI result Body Mass Index 35.4 GENERAL APPEARANCE: in no acute distress, pleasant. NECK: no carotid bruit, no jugular venous distention. SKIN: no suspicious lesions, warm and dry. HEART: no murmurs, regular rate and rhythm. Bradycardic. LUNGS: clear to auscultation bilaterally. ABDOMEN: soft, nontender. EXTREMITIES: no edema. PERIPHERAL PULSES: equal. NEUROLOGIC: No gross deficits, AAO X 3 Assessment & Plan Assessment & Plan (1) Palpitations: Code(s): R00.2 - Palpitations Category: Medical Plan Pleasant 49 year female who is here for follow-up. She has background of palpitations which happen at nighttime and she startles in her sleep and gets palpitations. She has been on atenolol with good blood pressure control and absence of arrhythmia on Holter monitoring but continues to get these symptoms fairly frequently. She had a sleep study done and she has no sleep apnea. No documented arrhythmia on the Holter monitor too. She has been clinically stable and we have not found any significant cardiovascular issues so far. I have advised her to see sleep Medicine officially to see if there is any other thoughts about her symptoms. She currently wishes to hold off. She will see us back in 1 year. Thank you for allowing me to participate in the care of your patient. Please feel free to contact me if you have any questions. Coding Level of Care Code Est Pt Level 3 (57157) Complex EM visit Add On G2211 Diagnoses Palpitations R00.2
[2024-11-03 10:19] VITALS: BP 110/62; PULSE 57; BMI 35.4
== END 2024-11-03 10:45 | disposition home or self-care (01) ==
LOC: HO.HCS 09:46
PROVIDERS: PCP Internal Medicine; Visit Provider Internal Medicine Cardiovascular Disease
DX: R00.2 Palpitations (principal)
CPT/HCPCS: 93010; 99213

== ENCOUNTER → 2024-11-03 09:46 | Outpatient (BNVA) | payer BC, SELFPAY | PROVIDERS: PCP Internal Medicine; Visit Provider Internal Medicine Cardiovascular Disease | DX: R00.2 Palpitations (principal) | CPT/HCPCS: 93005 ==

== ENCOUNTER 2025-01-10 10:51 | Outpatient (AMB) | payer BC, SELFPAY | END 2025-01-10 10:55 | disposition home or self-care (01) | LOC: HO.HMGAL 10:51 | PROVIDERS: PCP Internal Medicine; Visit Provider Registered Nurse Emergency | DX: J30.89 Other allergic rhinitis (principal) | CPT/HCPCS: 95117; 95165 ==

== ENCOUNTER 2025-01-26 14:36 | Outpatient (AMB) | payer BC, SELFPAY | END 2025-01-26 14:56 | disposition home or self-care (01) | LOC: HO.HMGAL 14:36 | PROVIDERS: PCP Internal Medicine; Visit Provider Registered Nurse Emergency | DX: J30.89 Other allergic rhinitis (principal) | CPT/HCPCS: 95117; 95165 ==

== ENCOUNTER 2025-02-07 14:34 | Outpatient (AMB) | payer BC, SELFPAY | END 2025-02-07 14:35 | disposition home or self-care (01) | LOC: HO.HMGAL 14:34 | PROVIDERS: PCP Internal Medicine; Visit Provider Registered Nurse Emergency | DX: J30.89 Other allergic rhinitis (principal) | CPT/HCPCS: 95117; 95165 ==

== ENCOUNTER 2025-02-28 15:29 | Outpatient (AMB) | payer BC, SELFPAY | END 2025-02-28 15:30 | disposition home or self-care (01) | LOC: HO.HMGAL 15:29 | PROVIDERS: PCP Internal Medicine; Visit Provider Registered Nurse Emergency | DX: J30.89 Other allergic rhinitis (principal) | CPT/HCPCS: 95117; 95165 ==

== ENCOUNTER 2025-03-14 15:32 | Outpatient (AMB) | payer BC, SELFPAY | END 2025-03-14 15:33 | disposition home or self-care (01) | LOC: HO.HMGAL 15:32 | PROVIDERS: PCP Internal Medicine; Visit Provider Registered Nurse Emergency | DX: J30.89 Other allergic rhinitis (principal) | CPT/HCPCS: 95117; 95165 ==

== ENCOUNTER 2025-03-28 15:27 | Outpatient (AMB) | payer BC, SELFPAY | END 2025-03-28 15:27 | disposition home or self-care (01) | LOC: HO.HMGAL 15:27 | PROVIDERS: PCP Internal Medicine; Visit Provider Registered Nurse Emergency | DX: J30.89 Other allergic rhinitis (principal) | CPT/HCPCS: 95117; 95165 ==

== ENCOUNTER 2025-04-11 14:48 | Outpatient (AMB) | payer BC, SELFPAY | END 2025-04-11 14:48 | disposition home or self-care (01) | LOC: HO.HMGAL 14:48 | PROVIDERS: PCP Internal Medicine; Visit Provider Registered Nurse Emergency | DX: J30.89 Other allergic rhinitis (principal) | CPT/HCPCS: 95117; 95165 ==

== ENCOUNTER 2025-04-25 15:19 | Outpatient (AMB) | payer BC, SELFPAY | END 2025-04-25 15:19 | disposition home or self-care (01) | LOC: HO.HMGAL 15:19 | PROVIDERS: PCP Internal Medicine; Visit Provider Registered Nurse Emergency | DX: J30.89 Other allergic rhinitis (principal) | CPT/HCPCS: 95117; 95165 ==

== ENCOUNTER 2025-05-09 15:15 | Outpatient (AMB) | payer BC, SELFPAY | END 2025-05-09 15:15 | disposition home or self-care (01) | LOC: HO.HMGAL 15:15 | PROVIDERS: PCP Internal Medicine; Visit Provider Registered Nurse Emergency | DX: J30.89 Other allergic rhinitis (principal) | CPT/HCPCS: 95117; 95165 ==